=== PATIENT | male | born 1950 | race Caucasian/White ===

== ENCOUNTER 2018-09-14 14:11 | Emergency (ER) | payer MEDICARE, OTHER ==
[2018-09-14 15:16] LABS: ALT (SGPT) 9 U/L (8-55); AST (SGOT) 15 U/L (5-34); Albumin 3.5 g/dL (3.4-4.8); Alkaline Phosphatase 85 U/L (40-150); Anion Gap 13 mmol/L (10-20); BUN (Urea Nitrogen) 19 mg/dL (8.4-25.7); Bilirubin, Total 0.4 mg/dL (0.2-1.2); Calc. Creatinine Clearance 0 mL/min (70-130); Calcium 8.9 mg/dL (7.8-10.44); Carbon Dioxide 30 mmol/L (23-31); Chloride 101 mmol/L (98-107); Estimated GFR-MDRD 46; Globulin 4.2 g/dL (2.4-3.5); Glucose 104 mg/dL (80-115); Potassium 4.3 mmol/L (3.5-5.1); Protein, Total 7.7 g/dL (5.8-8.1); Sodium 140 mmol/L (136-145)
[2018-09-14 15:25] LABS: Band 1 % (5-11); Eosinophils 7 % (0-10); Hemoglobin 11.2 g/dL (14.0-18.0); Lymphocytes 13 % (21-51); MDiff Complete? YES; Mean Corpuscular HGB CONC 31.9 g/dL (32.0-36.0); Mean Corpuscular Hemoglobin 29.7 pg (27.0-31.0); Mean Corpuscular Volume 93.1 fL (78.0-98.0); Mean Platelet Volume 7.7 fL (7.4-10.4); Monocytes 4 % (0-10); Neutrophil 66 % (42-75); Platelet Count 272 thou/uL (130-400); Platelet Morphology Comment Appears Adequate; Reactive Lymphocytes 9 % (0-10); Red Blood Cell (RBC) Count 3.76 mill/uL (4.70-6.10); White Blood Cell (WBC) Count 5.1 thou/uL (4.8-10.8)
--- NOTE | 2018-09-14 15:28 | RAD ---
XR Foot Rt 3 View STANDARD HISTORY: Infection and swelling of second and third digits of the right foot. The right foot pain COMPARISON: None. FINDINGS: No definite fracture, dislocation, periosteal reaction or bony destruction is seen. If there is high clinical concern for osteomyelitis, further evaluation with MRI should be performed.
[2018-09-14] MEDS ORDERED: HYDROcodone/Acetaminophen 10/325 mg Tablet ONE (19:13)
== END 2018-09-14 22:37 ==
LOC: MADERS 14:11
DX: M86.9 Osteomyelitis, unspecified (principal); L03.115 Cellulitis of right lower limb; I10 Essential (primary) hypertension; F32.9 Major depressive disorder, single episode, unspecified
CPT/HCPCS: 80053; 83605; 85025; 85652; 87040

== ENCOUNTER 2019-09-16 12:48 | Emergency (ER) | payer MEDICARE, OTHER ==
[~2019-09-16 12:48] MED LIST: Iopamidol 370 76% 125 ML VIAL FS ONE; Sodium Chloride 0.9% 100 ML BAG ONE
--- NOTE | 2019-09-16 13:46 | CT ---
HEAD CT WITHOUT CONTRAST: HISTORY: Headache. COMPARISON: None. FINDINGS: Hemorrhage: No intraparenchymal hemorrhage or extra-axial hematoma. Brain parenchyma: Cortical beach-white matter differentiation is preserved. No mass effect or midline shift. Basilar cisterns are patent.Minimal chronic small vessel ischemic changes of the white matter. Ventricular system: Ventricles and sulci are patent and symmetric. Calvarium: Intact. There is a mottled appearance of the diploic space along the left and right fronta l calvarium. Abnormal hypodensity is noted in the expected region of both frontal sinuses. Patchy areas of lucency and sclerosis are noted. There is bone expansion. No obvious cortical destruction al gregoria the posterior aspect of the calvarium to suggest intracranial extension. Sinuses and mastoid air cells: Abnormal attenuation of the frontal sinuses as described above. Remain ing paranasal sinuses and mastoid air cells are adequately aerated. IMPRESSION: 1. No definite acute intracranial process. 2. Irregularity involving the diploic space along the left and right frontal calvarium with abnormal hypoattenuation in the expected region of both frontal sinuses. There is bone expansion. 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 No obvious intracranial extension. Patient sta krystyna that he had a previous head CT performed at the [facility] last year. An attempt will be made to obtain the prior CT to assess for interval change/stability. 3. Results of study discussed with Dr. Adair 09/16/2019 at 2:15 PM Code CR Transcribed Date/Time: 09/16/2019 1:52 PM
[2019-09-16 13:52] LABS: #Basophils 0.1 thou/uL (0.0-0.2); #Eosinphils 0.2 thou/uL (0.0-0.7); #Lymphocytes 1.5 thou/uL (1.20-3.40); #Monocytes 0.5 thou/uL (0.11-0.59); #Neutrophils 3.8 thou/uL (1.40-6.50); %Basophils 0.8 % (0.0-1.0); %Eosinophils 3.1 % (0.0-10.0); %Monocytes 8.8 % (0.0-10.0); %Neutrophils 62.3 % (42.0-75.0); Hemoglobin 13.2 g/dL (14.0-18.0); Mean Corpuscular HGB CONC 30.7 g/dL (32.0-36.0); Mean Corpuscular Hemoglobin 30.8 pg (27.0-31.0); Mean Corpuscular Volume 100.6 fL (78.0-98.0); Mean Platelet Volume 8.2 fL (7.4-10.4); Platelet Count 180 thou/uL (130-400); RBC Distribution Width 13.7 % (11.5-14.5); Red Blood Cell (RBC) Count 4.29 mill/uL (4.70-6.10); White Blood Cell (WBC) Count 6.1 thou/uL (4.8-10.8)
[2019-09-16 14:00] LABS: INR-International Normal Ratio 1.8; Prothrombin Time 20.9 SEC (12.0-14.7)
[2019-09-16 14:11] LABS: ALT (SGPT) 13 U/L (8-55); AST (SGOT) 18 U/L (5-34); Albumin 3.8 g/dL (3.4-4.8); Alkaline Phosphatase 69 U/L (40-110); Anion Gap 13 mmol/L (10-20); BUN (Urea Nitrogen) 20 mg/dL (8.4-25.7); Bilirubin, Total 0.5 mg/dL (0.2-1.2); CK (CPK) 82 U/L (30-200); Calc. Creatinine Clearance 0 mL/min (70-130); Calcium 8.9 mg/dL (7.8-10.44); Carbon Dioxide 33 mmol/L (23-31); Chloride 103 mmol/L (98-107); Estimated GFR-MDRD 55; Globulin 3.8 g/dL (2.4-3.5); Glucose 105 mg/dL (80-115); Potassium 4.5 mmol/L (3.5-5.1); Protein, Total 7.6 g/dL (5.8-8.1); Sodium 144 mmol/L (136-145)
--- NOTE | 2019-09-16 14:27 | RAD ---
PORTABLE CHEST 1 VIEW: Date: 09/16/2019 Time: 1355 hours HISTORY: Cough. FINDINGS/IMPRESSION: There are changes of median sternotomy. The heart is enlarged. The lungs are well expanded with mild prominence of the pulmonary vascularity. No lobar consolidation, pneumothoraces, or large effusions a re seen. POS: MZA
--- NOTE | 2019-09-16 15:51 | CT ---
CT PULMONARY ANGIOGRAM WITH IV CONTRAST AND 3D MIP RECONSTRUCTIONS: 09/16/19 PROVIDED CLINICAL HISTORY: Dyspnea. FINDINGS: Vascular calcification including coronary calcium is demonstrated. There is no evidence for central o r segmental pulmonary embolus. There is no evidence for thoracic aortic aneurysm or dissection. The airway appears patent and of normal caliber. There is no evidence for thoracic lymph node enlarg ement. There is a small amount of left pleural fluid. There are patchy areas of ground glass opacity involvi ng the lung parenchyma bilaterally which are predominantly but not exclusively peripheral in location . No chente consolidation. No evidence for pneumothorax. The visualized portions of the upper abdomen demonstrate gallstones without evidence for an acute abn ormality. The osseous structures demonstrate no concerning lytic or blastic lesions. IMPRESSION: 1. No evidence for central or segmental pulmonary embolus. 2. Patchy bilateral ground glass opacity involving the lung parenchyma. This can be seen in the setting of viral pneumonia, but is nonspecific and can occur with a variety of infectious and noninfe ctious processes. 3. Coronary calcium. 4. Cholelithiasis. POS: JENIFFER
[2019-09-16] MEDS ORDERED: Ventolin HFA Inhaler 60 PUFF INHALER ONE (17:41)
[2019-09-16] MEDS ORDERED: Sodium Chloride 0.9% 250 ML 250 ML ONE (17:59)
[2019-09-16] MEDS ORDERED: cefTRIAXone\\ROCEPHIN 1 GM VIAL ONE (17:59)
[2019-09-16] MEDS ORDERED: Azithromycin 500 MG VIAL ONE (17:59)
[2019-09-16] MEDS ORDERED: Sodium Chloride 0.9% 100 ML ONE (17:59)
== END 2019-09-16 19:15 | disposition short-term general hospital (02) ==
LOC: MADERS 12:48
DX: R51 Headache (principal); R05 Cough; Z20.828 Contact with and (suspected) exposure to other viral communicable diseases; R06.02 Shortness of breath; Z86.73 Personal history of transient ischemic attack (TIA), and cerebral infarction without residual deficits; K21.9 Gastro-esophageal reflux disease without esophagitis; I10 Essential (primary) hypertension; F32.9 Major depressive disorder, single episode, unspecified; I73.9 Peripheral vascular disease, unspecified
CPT/HCPCS: 70450; 71045; 71275; 80053; 82550; 83880; 84484; 85025; 85610; 87633; 87804 ×2; 93005; 94760; 96365; 96367; 99285; J0456; J0696; J3490; J7050; Q9967; U0002; 87635

== ENCOUNTER 2019-10-25 14:26 | Inpatient (IN) | payer MEDICARE, OTHER ==
[2019-10-25] MEDS: Mirtazapine 15 MG TAB PO SCH (20:54)
[2019-10-25] MEDS: Gabapentin 400 MG CAP PO SCH (20:54)
[2019-10-25] MEDS: Amlodipine 5 MG TAB PO SCH (20:54)
[2019-10-25] MEDS: Magnesium Oxide 400 MG TAB PO SCH (20:54)
[2019-10-25] MEDS: Atorvastatin Calcium 10 MG TAB PO SCH (20:55)
[2019-10-25] MEDS ORDERED: oxyCODONE/Acetaminophen 5 mg/325 mg Tablet PO PRN ×2 (22:27→22:28)
--- NOTE | 2019-10-26 03:30 | HP ---
PRIMARY CARE PHYSICIAN: Out-of-town. REASON FOR ADMISSION: Skilled rehab in [place] after recent hospitalization. HISTORY OF THE PRESENT ILLNESS AND HOSPITAL COURSE: Mr. Lam is a 69-year-old male with history of hypertension; atrial fibrillation, on long-term use of Coumadin; and history of unsteady gait. He uses a rolling walker at home. The patient reports he has history of unsteady gait and recurrent falls in the past. He has also history of chronic pain syndrome. He was preparing his breakfast at home, when he felt dizzy and landed on the floor. Denies loss of consciousness or trauma to his head. The patient was sent to the ER and on further examination, the patient's x-ray demonstrated displaced intertrochanteric fracture of the right femur. The patient was subsequently admitted and undergone ORIF. The patient has had an unremarkable postoperative course, except for anemia deemed from acute blood loss. His most recent hemoglobin prior to discharge was 9.0 with hematocrit of 28.5 as of 10/24/2019, with INR of 1.4 as of 10/23/2019. His baseline hemoglobin on 10/18/2019, per records was 11.9 with hematocrit of 37.5. The patient remained generally weak and nonambulatory prior to discharge. He was transferred to [facility] for purposes of rehab prior to going back to the home environment. When admitted, the patient was comfortable on exam. He reports that he has history of poor memory and to rely on his records for further information. 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 There was a misunderstanding of who would be the patient's attending physician due to 's decision of not involving any of his previous doctors in the facility. After further discussion of the patient with the several times on the phone, the patient decided to stay with current attending physician to take care of him while in [facility]. No other issues at this time. PAST MEDICAL HISTORY: 1. Hypertension. 2. Hyperlipidemia. 3. Chronic back pain. 4. Gastroesophageal reflux. 5. Chronic leg pain. 6. Coronary artery disease with previous open-heart surgery. 7. Atrial fibrillation, on long-term anticoagulation with Coumadin. 8. Benign prostatic hyperplasia. 9. Depression and anxiety. 10. Neuropathic pain. PAST SURGICAL HISTORY: History of coronary artery bypass surgery. SOCIAL HISTORY: The patient denied history of smoking, alcohol abuse, or illicit drug use. The patient is . He lives by himself. ALLERGIES: THE PATIENT IS ALLERGIC TO CODEINE, ASPIRIN, AND PENICILLIN. CURRENT MEDICATIONS: 1. Atorvastatin 10 mg p.o. at bedtime. 2. Amlodipine 5 mg two times a day. 3. Carvedilol 12.5 mg two times a day. 4. Cyanocobalamin 1000 mcg daily. 5. Feosol 325 mg one daily. 6. Folic acid 1 mg p.o. daily. 7. Polyethylene glycol 3350, 17 g daily as needed for constipation. 8. Warfarin sodium tablet 7.5 mg p.o. daily. 9. Gabapentin 400 mg p.o. two times a day. 10. Lamotrigine 100 mg p.o. daily. 11. Magnesium oxide 400 mg p.o. at bedtime. 12. Mirtazapine 15 mg p.o. at bedtime. 13. Omeprazole 20 mg p.o. daily. 14. Primidone 50 mg p.o. daily. 15. Tamsulosin 0.4 mg p.o. daily. 16. Venlafaxine 75 mg p.o. three capsules daily. REVIEW OF SYSTEMS: GENERAL: Denies fever or chills. Reports general weakness and fatigue. HEENT: No acute visual changes or hearing changes. RESPIRATORY: No cough, sputum production, pain with breathing, or wheezing. CARDIAC: Denies chest pain, palpitations, or syncope. Reports intermittent leg edema. GASTROINTESTINAL: reports reflux symptoms, no nausea, vomiting, abdominal pain nor diarrhea. no constipation, melena, rectal bleeding. GUT: no dysuria, frequency or urgency, gross hematuria. MUSCULOSKELETAL: per HPI. SKIN: no rashes, no pruritus. NEUROLOGY: no focal paralysis, no paresthesia. PSYCH: no insomnia, no hallucinations. PHYSICAL EXAMINATION: VITAL SIGNS: Blood pressure 130/69, temp 99.1, pulse 71, respirations 18, and O2 sats 92% on room air. Weight 294 pounds and height 6 feet. GENERAL: The patient is awake, alert, and oriented x3. Not in distress. HEENT: Normocephalic, atraumatic. PERRL. Intact EOM. Anicteric sclerae. Oral mucosa is moist. NECK: Supple. No LAD. Flat JVD. CHEST: Normal excursion. Clear to auscultation bilaterally. CARDIAC: Rate controlled. Normal S1 and S2. ABDOMEN: Obese and soft. Normoactive bowel sounds. Nondistended, nontender. No rebound or guarding. Negative CVA tenderness bilaterally. EXTREMITIES: Trace bipedal edema up to anterior tibia bilaterally. Negative Homans signs. SKIN: Three postoperative sites in the right lateral femur were intact. Kathy are in place. Dry. No drainage. No arpita-wound erythema nor surrounding edema. Some bruises noted on the scrotum and hyperpigmentation of the anterior mid to lower tibia. bilaterally. PSYCH: Appears calm. Appropriate demeanor and affect.Cooperative. NEUROLOGIC: Nonfocal. Spontaneous speech. Gait unsteady. ASSESSMENT AND PLAN: 1. Physical deconditioning. 2. Right femur displaced intertrochanteric fracture, status post open reduction and internal fixation. 3. Chronic atrial fibrillation, on long-term use of warfarin with subtherapeutic INR. 4. Hypertension. 5. Hyperlipidemia. 6. Anemia from acute blood loss. 7. Chronic gastroesophageal reflux disease, 8. Chronic low back pain, depression, 9. Anxiety. 10. Benign prostatic hyperplasia. 11. Unsteady gait. The patient is admitted to [facility] for skilled rehab. Refer to PT and OT. Continue all current medications as modified per list. Routine INR daily and CBC every weekly. INR goal of 2 to 3. Titrate warfarin to goal appropriately.INR goal: 2-3. Further recommendations depending on hospital course. ESTIMATED LENGTH OF STAY: 3 weeks. DISPOSITION: Home once appropriate. The patient reports that he lives by himself. He is open to the fact that after skilled rehab, he may stay in step-down SNF if he could not take care of himself at that time and no one would be able to take care of him at home. CODE STATUS: The patient reports FULL CODE. Job ID: [id number] MTDD
[2019-10-26 05:56] LABS: Platelet Count 265 thou/uL (130-400)
[2019-10-26 05:58] LABS: INR-International Normal Ratio 1.4; Prothrombin Time 17.3 sec (12.0-14.7)
[2019-10-26 06:27] LABS: Hemoglobin 9.2 g/dL (14.0-18.0); Mean Corpuscular Hemoglobin 31.8 pg (27.0-31.0); Mean Platelet Volume 8.9 fL (7.4-10.4); Red Blood Cell (RBC) Count 2.89 mill/uL (4.70-6.10); White Blood Cell (WBC) Count 6.9 thou/uL (4.8-10.8)
[2019-10-26] MEDS: Ferrous Sulfate 325 MG TAB PO SCH (07:54)
[2019-10-26] MEDS: Folic Acid 1 MG TAB PO SCH (07:54)
[2019-10-26] MEDS: Tamsulosin HCl 0.4 MG CAP PO SCH (07:54)
[2019-10-26] MEDS: Gabapentin 400 MG CAP PO SCH ×2 (07:54→20:21)
[2019-10-26] MEDS: Cyanocobalamin (Vitamin B-12) 1,000 MCG TAB PO SCH (07:54)
[2019-10-26] MEDS: Acetaminophen 325 MG TAB PO PRN ×3 (07:55→19:58)
[2019-10-26] MEDS: oxyCODONE 5 MG TAB PO PRN ×2 (07:56→20:07)
[2019-10-26] MEDS: lamoTRIgine 25 MG TAB PO SCH (07:59)
[2019-10-26] MEDS: Primidone 50 MG TAB PO SCH (08:00)
[2019-10-26] MEDS ORDERED: Warfarin Sodium 2.5 MG TAB PO SCH (09:00)
[2019-10-26] MEDS: Carvedilol 12.5 MG TAB PO SCH ×2 (09:38→17:04)
[2019-10-26] MEDS: Amlodipine 5 MG TAB PO SCH ×2 (09:38→20:10)
[2019-10-26] MEDS: Venlafaxine HCl 37.5 MG TAB PO SCH (09:39)
[2019-10-26] MEDS ORDERED: oxyCODONE 5 MG TAB PO SCH (13:30)
[2019-10-26] MEDS ORDERED: Acetaminophen 325 MG TAB PO SCH (13:30)
[2019-10-26] MEDS ORDERED: Warfarin Sodium 5 MG TAB PO SCH (17:00)
[2019-10-26] MEDS: Mirtazapine 15 MG TAB PO SCH (20:05)
[2019-10-26] MEDS: Atorvastatin Calcium 10 MG TAB PO SCH (20:06)
[2019-10-26] MEDS: Magnesium Oxide 400 MG TAB PO SCH (20:11)
[2019-10-27] MEDS: oxyCODONE 5 MG TAB PO PRN ×2 (06:04→19:33)
[2019-10-27] MEDS: Acetaminophen 325 MG TAB PO PRN ×2 (06:06→19:33)
[2019-10-27 07:24] LABS: INR-International Normal Ratio 1.4; Prothrombin Time 17.2 sec (12.0-14.7)
[2019-10-27] MEDS: Gabapentin 400 MG CAP PO SCH ×2 (08:07→20:20)
[2019-10-27] MEDS: Ferrous Sulfate 325 MG TAB PO SCH (08:08)
[2019-10-27] MEDS: Primidone 50 MG TAB PO SCH (08:08)
[2019-10-27] MEDS: Venlafaxine HCl 37.5 MG TAB PO SCH (08:08)
[2019-10-27] MEDS: Folic Acid 1 MG TAB PO SCH (08:08)
[2019-10-27] MEDS: Amlodipine 5 MG TAB PO SCH ×2 (08:08→20:21)
[2019-10-27] MEDS: Tamsulosin HCl 0.4 MG CAP PO SCH (08:08)
[2019-10-27] MEDS: lamoTRIgine 25 MG TAB PO SCH (08:08)
[2019-10-27] MEDS: Carvedilol 12.5 MG TAB PO SCH ×2 (08:08→17:01)
[2019-10-27] MEDS: Cyanocobalamin (Vitamin B-12) 1,000 MCG TAB PO SCH (08:08)
[2019-10-27] MEDS ORDERED: Warfarin Sodium 1 MG TAB PO SCH (17:00)
[2019-10-27] MEDS ORDERED: Warfarin Sodium 2.5 MG TAB PO SCH (17:00)
[2019-10-27] MEDS ORDERED: Warfarin Sodium 5 MG TAB PO SCH ×2 (17:00→17:15)
[2019-10-27] MEDS: Magnesium Oxide 400 MG TAB PO SCH (20:22)
[2019-10-27] MEDS: Mirtazapine 15 MG TAB PO SCH (20:22)
[2019-10-27] MEDS: Atorvastatin Calcium 10 MG TAB PO SCH (20:22)
[2019-10-28 05:37] LABS: INR-International Normal Ratio 1.7; Prothrombin Time 19.7 sec (12.0-14.7)
[2019-10-28] MEDS: Acetaminophen 325 MG TAB PO PRN (06:14)
[2019-10-28] MEDS: oxyCODONE 5 MG TAB PO PRN ×3 (06:14→20:30)
[2019-10-28] MEDS: Amlodipine 5 MG TAB PO SCH ×2 (08:41→20:29)
[2019-10-28] MEDS: Cyanocobalamin (Vitamin B-12) 1,000 MCG TAB PO SCH (08:41)
[2019-10-28] MEDS: Carvedilol 12.5 MG TAB PO SCH ×2 (08:41→17:20)
[2019-10-28] MEDS: Ferrous Sulfate 325 MG TAB PO SCH (08:41)
[2019-10-28] MEDS: Venlafaxine HCl 37.5 MG TAB PO SCH (08:42)
[2019-10-28] MEDS: Tamsulosin HCl 0.4 MG CAP PO SCH (08:42)
[2019-10-28] MEDS: Gabapentin 400 MG CAP PO SCH ×2 (08:42→20:29)
[2019-10-28] MEDS: Folic Acid 1 MG TAB PO SCH (08:42)
[2019-10-28] MEDS: Primidone 50 MG TAB PO SCH (08:42)
[2019-10-28] MEDS: lamoTRIgine 25 MG TAB PO SCH (08:42)
[2019-10-28] MEDS ORDERED: Artificial Tear Sol 15 ML BOT EA EYE PRN (16:48)
[2019-10-28] MEDS ORDERED: Warfarin Sodium 5 MG TAB PO SCH ×2 (17:00)
[2019-10-28] MEDS: Warfarin Sodium 2.5 MG TAB PO SCH (17:20)
[2019-10-28] MEDS: Magnesium Oxide 400 MG TAB PO SCH (20:29)
[2019-10-28] MEDS: Atorvastatin Calcium 10 MG TAB PO SCH (20:29)
[2019-10-28] MEDS: Mirtazapine 15 MG TAB PO SCH (20:30)
[2019-10-29 07:14] LABS: INR-International Normal Ratio 1.8; Prothrombin Time 20.4 sec (12.0-14.7)
[2019-10-29] MEDS: Ferrous Sulfate 325 MG TAB PO SCH (09:05)
[2019-10-29] MEDS: Carvedilol 12.5 MG TAB PO SCH ×2 (09:05→17:07)
[2019-10-29] MEDS: Amlodipine 5 MG TAB PO SCH ×2 (09:05→21:18)
[2019-10-29] MEDS: Tamsulosin HCl 0.4 MG CAP PO SCH (09:06)
[2019-10-29] MEDS: Folic Acid 1 MG TAB PO SCH (09:06)
[2019-10-29] MEDS: lamoTRIgine 25 MG TAB PO SCH (09:06)
[2019-10-29] MEDS: Venlafaxine HCl 37.5 MG TAB PO SCH (09:06)
[2019-10-29] MEDS: Gabapentin 400 MG CAP PO SCH ×2 (09:06→21:18)
[2019-10-29] MEDS: Primidone 50 MG TAB PO SCH (09:06)
[2019-10-29] MEDS: Cyanocobalamin (Vitamin B-12) 1,000 MCG TAB PO SCH (09:06)
[2019-10-29] MEDS: oxyCODONE 5 MG TAB PO PRN (09:16)
[2019-10-29] MEDS: Warfarin Sodium 2.5 MG TAB PO SCH (17:08)
[2019-10-29] MEDS: Mirtazapine 15 MG TAB PO SCH (21:18)
[2019-10-29] MEDS: Magnesium Oxide 400 MG TAB PO SCH (21:18)
[2019-10-29] MEDS: Atorvastatin Calcium 10 MG TAB PO SCH (21:18)
[2019-10-30 05:55] LABS: INR-International Normal Ratio 1.7; Prothrombin Time 19.5 sec (12.0-14.7)
[2019-10-30] MEDS: Amlodipine 5 MG TAB PO SCH ×2 (09:15→20:49)
[2019-10-30] MEDS: Ferrous Sulfate 325 MG TAB PO SCH (09:15)
[2019-10-30] MEDS: Cyanocobalamin (Vitamin B-12) 1,000 MCG TAB PO SCH (09:15)
[2019-10-30] MEDS: Carvedilol 12.5 MG TAB PO SCH ×2 (09:15→17:15)
[2019-10-30] MEDS: Primidone 50 MG TAB PO SCH (09:16)
[2019-10-30] MEDS: Gabapentin 400 MG CAP PO SCH ×2 (09:16→20:48)
[2019-10-30] MEDS: Folic Acid 1 MG TAB PO SCH (09:16)
[2019-10-30] MEDS: lamoTRIgine 25 MG TAB PO SCH (09:16)
[2019-10-30] MEDS: Acetaminophen 325 MG TAB PO PRN ×2 (09:16→20:14)
[2019-10-30] MEDS: oxyCODONE 5 MG TAB PO PRN ×2 (09:17→20:12)
[2019-10-30] MEDS: Venlafaxine HCl 37.5 MG TAB PO SCH (09:17)
[2019-10-30] MEDS: Tamsulosin HCl 0.4 MG CAP PO SCH (09:17)
[2019-10-30] MEDS: Polyethylene Glycol 3350 17 GM Packet PO PRN (09:23)
[2019-10-30] MEDS: Warfarin Sodium 2.5 MG TAB PO SCH (17:15)
[2019-10-30] MEDS: Mirtazapine 15 MG TAB PO SCH (20:48)
[2019-10-30] MEDS: Magnesium Oxide 400 MG TAB PO SCH (20:48)
[2019-10-30] MEDS: Atorvastatin Calcium 10 MG TAB PO SCH (20:48)
[2019-10-31 05:41] LABS: INR-International Normal Ratio 1.8; Prothrombin Time 21.2 sec (12.0-14.7)
[2019-10-31] MEDS: oxyCODONE 5 MG TAB PO PRN ×3 (05:42→20:31)
[2019-10-31] MEDS: Acetaminophen 325 MG TAB PO PRN ×2 (05:42→11:34)
[2019-10-31] MEDS: Ferrous Sulfate 325 MG TAB PO SCH (08:58)
[2019-10-31] MEDS: Carvedilol 12.5 MG TAB PO SCH ×2 (08:58→17:27)
[2019-10-31] MEDS: Primidone 50 MG TAB PO SCH (08:58)
[2019-10-31] MEDS: Amlodipine 5 MG TAB PO SCH ×2 (08:58→20:32)
[2019-10-31] MEDS: Venlafaxine HCl 37.5 MG TAB PO SCH (08:59)
[2019-10-31] MEDS: Tamsulosin HCl 0.4 MG CAP PO SCH (08:59)
[2019-10-31] MEDS: lamoTRIgine 25 MG TAB PO SCH (08:59)
[2019-10-31] MEDS: Gabapentin 400 MG CAP PO SCH ×2 (08:59→20:32)
[2019-10-31] MEDS: Cyanocobalamin (Vitamin B-12) 1,000 MCG TAB PO SCH (08:59)
[2019-10-31] MEDS: Folic Acid 1 MG TAB PO SCH (08:59)
[2019-10-31] MEDS ORDERED: Nitroglycerin 0.4 MG TAB (25 Tab Bottle) ONE (11:52)
[2019-10-31 12:09] LABS: #Basophils 0.1 thou/uL (0.0-0.2); #Eosinphils 0.4 thou/uL (0.0-0.7); #Lymphocytes 0.8 thou/uL (1.20-3.40); #Monocytes 0.5 thou/uL (0.11-0.59); #Neutrophils 4.6 thou/uL (1.40-6.50); %Eosinophils 5.9 % (0.0-10.0); %Lymphocytes 12.6 % (21.0-51.0); %Monocytes 8.5 % (0.0-10.0); %Neutrophils 72.1 % (42.0-75.0); Hemoglobin 9.6 g/dL (14.0-18.0); Mean Corpuscular HGB CONC 30.2 g/dL (32.0-36.0); Mean Corpuscular Hemoglobin 30.9 pg (27.0-31.0); Mean Corpuscular Volume 102.5 fL (78.0-98.0); Mean Platelet Volume 8.4 fL (7.4-10.4); Platelet Count 311 thou/uL (130-400); RBC Distribution Width 14.2 % (11.5-14.5); White Blood Cell (WBC) Count 6.4 thou/uL (4.8-10.8)
[2019-10-31 12:10] LABS: INR-International Normal Ratio 1.7; PTT 43.4 sec (22.9-36.1); Prothrombin Time 20.2 sec (12.0-14.7)
--- NOTE | 2019-10-31 12:10 | RAD ---
Chest one view HISTORY: Chest pain. COMPARISON: 10/18/2019. FINDINGS: Cardiac silhouette is magnified and enlarged. Pulmonary vasculature is more engorged with w idespread reticulonodular interstitial prominence. Mediastinum is midline with postoperative changes. No lobar consolidation or pneumothorax are apparent. IMPRESSION : Cardiomegaly with findings of chronic CHF
[2019-10-31 12:22] LABS: ALT (SGPT) 12 U/L (8-55); AST (SGOT) 14 U/L (5-34); Albumin 3.3 g/dL (3.4-4.8); Alkaline Phosphatase 109 U/L (40-110); Anion Gap 13 mmol/L (10-20); BUN (Urea Nitrogen) 33 mg/dL (8.4-25.7); Bilirubin, Total 0.7 mg/dL (0.2-1.2); Calc. Creatinine Clearance 92 mL/min (70-130); Calcium 9.5 mg/dL (7.8-10.44); Carbon Dioxide 32 mmol/L (23-31); Chloride 100 mmol/L (98-107); Estimated GFR-MDRD 50; Glucose 128 mg/dL (80-115); Potassium 4.7 mmol/L (3.5-5.1); Protein, Total 7.3 g/dL (5.8-8.1); Sodium 140 mmol/L (136-145)
[2019-10-31 12:24] LABS: CKMB 1.2 ng/mL (0-6.6); Troponin I Less than 0.010 ng/mL (< 0.028)
[2019-10-31] MEDS ORDERED: Furosemide 20 MG/2 ML VIAL SLOW IVP SCH (15:45)
[2019-10-31] MEDS: Warfarin Sodium 2.5 MG TAB PO SCH (17:27)
[2019-10-31] MEDS: Atorvastatin Calcium 10 MG TAB PO SCH (20:32)
[2019-10-31] MEDS: Magnesium Oxide 400 MG TAB PO SCH (20:32)
[2019-10-31] MEDS: Mirtazapine 15 MG TAB PO SCH (20:32)
[2019-10-31] MEDS ORDERED: Nitroglycerin 4.9 GM Bottle SL PRN (20:40)
[2019-10-31] MEDS ORDERED: Enoxaparin Sodium 30 MG/0.3 ML SYRINGE SC SCH (21:00)
[2019-10-31] MEDS ORDERED: Enoxaparin Sodium 100 MG/ML SYRINGE SC SCH (21:00)
[2019-11-01 05:48] LABS: Prothrombin Time 22.9 sec (12.0-14.7)
[2019-11-01 05:58] LABS: Hemoglobin 8.2 g/dL (14.0-18.0); Platelet Count 269 thou/uL (130-400)
[2019-11-01] MEDS ORDERED: Enoxaparin Sodium 30 MG/0.3 ML SYRINGE SC SCH (09:00)
[2019-11-01] MEDS ORDERED: Enoxaparin Sodium 100 MG/ML SYRINGE SC SCH (09:00)
[2019-11-01] MEDS: Gabapentin 400 MG CAP PO SCH ×2 (09:10→20:01)
[2019-11-01] MEDS: Tamsulosin HCl 0.4 MG CAP PO SCH (09:10)
[2019-11-01] MEDS: Folic Acid 1 MG TAB PO SCH (09:10)
[2019-11-01] MEDS: Furosemide 20 MG TAB PO SCH (09:10)
[2019-11-01] MEDS: Ferrous Sulfate 325 MG TAB PO SCH (09:10)
[2019-11-01] MEDS: Primidone 50 MG TAB PO SCH (09:10)
[2019-11-01] MEDS: Cyanocobalamin (Vitamin B-12) 1,000 MCG TAB PO SCH (09:10)
[2019-11-01] MEDS: Venlafaxine HCl 37.5 MG TAB PO SCH (09:10)
[2019-11-01] MEDS: lamoTRIgine 25 MG TAB PO SCH (09:11)
[2019-11-01] MEDS: Carvedilol 12.5 MG TAB PO SCH ×2 (09:11→17:03)
[2019-11-01] MEDS: Amlodipine 5 MG TAB PO SCH ×2 (09:11→20:02)
[2019-11-01] MEDS ORDERED: Iopamidol 370 76% 125 ML VIAL FS ONE (11:31)
--- NOTE | 2019-11-01 13:05 | CT ---
CT ANGIOGRAM THORAX WITH CONTRAST: (CTA pulmonary angiogram) DATE: 11/01/2019 HISTORY: 69-year-old male with chest pain and dyspnea TECHNIQUE: IV injection of iodinated contrast. Scan acquisition timing attempted to coincide with iodinated contrast bolus reaching maximal density in pulmonary arteries. 3-D MIP reconstructions. FINDINGS: Multiple tiny calcified gallstones within distended gallbladder. No evidence of mural thickening or p ericholecystic edema. Images are degraded by patient breathing motion artifact, especially at the lung bases. No pulmonary thromboembolism is identified in the pulmonic trunk, left and right main pul monary arteries, or the bilateral upper lobe proximal and mid level branches. No thoracic aortic aneurysm or dissection. There is tortuosity and ectasia of thoracic aorta and mild dilation of the le ft and right main pulmonary arteries. There is nonspecific mild to moderate spinal and bilateral hilar lymphadenopathy. Mild 4 chamber cardiac dilation. Tiny left pleural effusion. Left lower lobe m oderate size region of consolidation. Fluid in the major fissures. Mild narrowing of bilateral mainstem bronchi and the luke. Trachea patent. Diffuse patchy nonspecific groundglass densities thr oughout all lung zones. IMPRESSION: 1. Probable congestive heart failure: Groundglass densities probably represent pulmonary interstitial edema. Viral pneumonitis is slightly less likely but not excluded. 2. Left lower lobe region of consolidation. 3. No central pulmonary thromboembolism. 4. Cholelithiasis
[2019-11-01] MEDS: Acetaminophen 325 MG TAB PO PRN ×2 (13:12→19:33)
[2019-11-01] MEDS: oxyCODONE 5 MG TAB PO PRN ×2 (13:12→19:33)
[2019-11-01] MEDS ORDERED: Sodium Chloride 0.9% 100 ML BAG ONE (14:04)
[2019-11-01] MEDS: Warfarin Sodium 2.5 MG TAB PO SCH (17:03)
[2019-11-01] MEDS: Atorvastatin Calcium 10 MG TAB PO SCH (20:02)
[2019-11-01] MEDS: Mirtazapine 15 MG TAB PO SCH (20:02)
[2019-11-01] MEDS: Magnesium Oxide 400 MG TAB PO SCH (20:02)
[2019-11-02 05:35] LABS: INR-International Normal Ratio 1.8; Prothrombin Time 20.7 sec (12.0-14.7)
[2019-11-02] MEDS: Amlodipine 5 MG TAB PO SCH ×2 (07:57→20:52)
[2019-11-02] MEDS: Ferrous Sulfate 325 MG TAB PO SCH (07:57)
[2019-11-02] MEDS: Carvedilol 12.5 MG TAB PO SCH ×2 (07:57→16:59)
[2019-11-02] MEDS: Folic Acid 1 MG TAB PO SCH (07:57)
[2019-11-02] MEDS: Tamsulosin HCl 0.4 MG CAP PO SCH (07:57)
[2019-11-02] MEDS: Cyanocobalamin (Vitamin B-12) 1,000 MCG TAB PO SCH (07:57)
[2019-11-02] MEDS: Furosemide 20 MG TAB PO SCH ×2 (07:57→13:19)
[2019-11-02] MEDS: Venlafaxine HCl 37.5 MG TAB PO SCH (07:57)
[2019-11-02] MEDS: Gabapentin 400 MG CAP PO SCH ×2 (07:58→20:48)
[2019-11-02] MEDS: lamoTRIgine 25 MG TAB PO SCH (07:58)
[2019-11-02] MEDS: Primidone 50 MG TAB PO SCH (07:58)
[2019-11-02] MEDS ORDERED: Potassium Chloride 20 MEQ TAB PO SCH (13:00)
[2019-11-02] MEDS: Warfarin Sodium 5 MG TAB PO SCH (16:59)
[2019-11-02] MEDS: Magnesium Oxide 400 MG TAB PO SCH (20:47)
[2019-11-02] MEDS: Atorvastatin Calcium 10 MG TAB PO SCH (20:47)
[2019-11-02] MEDS: Mirtazapine 15 MG TAB PO SCH (20:48)
[2019-11-03 05:57] LABS: INR-International Normal Ratio 2.1; Prothrombin Time 23.5 sec (12.0-14.7)
[2019-11-03] MEDS: Gabapentin 400 MG CAP PO SCH ×2 (08:20→21:09)
[2019-11-03] MEDS: lamoTRIgine 25 MG TAB PO SCH (08:20)
[2019-11-03] MEDS: Cyanocobalamin (Vitamin B-12) 1,000 MCG TAB PO SCH (08:20)
[2019-11-03] MEDS: Amlodipine 5 MG TAB PO SCH ×2 (08:21→21:09)
[2019-11-03] MEDS: Ferrous Sulfate 325 MG TAB PO SCH (08:21)
[2019-11-03] MEDS: Venlafaxine HCl 37.5 MG TAB PO SCH (08:21)
[2019-11-03] MEDS: Tamsulosin HCl 0.4 MG CAP PO SCH (08:21)
[2019-11-03] MEDS: Carvedilol 12.5 MG TAB PO SCH ×2 (08:22→17:08)
[2019-11-03] MEDS: Folic Acid 1 MG TAB PO SCH (08:22)
[2019-11-03] MEDS: Furosemide 20 MG TAB PO SCH ×2 (08:22→14:03)
[2019-11-03] MEDS: Potassium Chloride 20 MEQ TAB PO SCH (08:22)
[2019-11-03] MEDS: Primidone 50 MG TAB PO SCH (08:22)
[2019-11-03] MEDS: Polyethylene Glycol 3350 17 GM Packet PO PRN (14:03)
[2019-11-03] MEDS: Warfarin Sodium 5 MG TAB PO SCH (17:08)
[2019-11-03] MEDS ORDERED: Gabapentin 100 MG CAP PO SCH (21:00)
[2019-11-03] MEDS: Magnesium Oxide 400 MG TAB PO SCH (21:10)
[2019-11-03] MEDS: Atorvastatin Calcium 10 MG TAB PO SCH (21:10)
[2019-11-03] MEDS: Mirtazapine 15 MG TAB PO SCH (21:10)
[2019-11-03] MEDS: Acetaminophen 325 MG TAB PO PRN (21:16)
[2019-11-04 05:47] LABS: Hemoglobin 8.2 g/dL (14.0-18.0); Platelet Count 281 thou/uL (130-400)
[2019-11-04 05:49] LABS: INR-International Normal Ratio 1.9; Prothrombin Time 21.8 sec (12.0-14.7)
[2019-11-04] MEDS ORDERED: Furosemide 20 MG TAB PO SCH (07:15)
[2019-11-04] MEDS: Carvedilol 12.5 MG TAB PO SCH ×2 (07:37→16:57)
[2019-11-04] MEDS: Potassium Chloride 20 MEQ TAB PO SCH (07:37)
[2019-11-04] MEDS: Ferrous Sulfate 325 MG TAB PO SCH (07:38)
[2019-11-04] MEDS: oxyCODONE 5 MG TAB PO PRN (07:38)
[2019-11-04] MEDS: lamoTRIgine 25 MG TAB PO SCH (08:24)
[2019-11-04] MEDS: Gabapentin 400 MG CAP PO SCH ×2 (08:24→21:55)
[2019-11-04] MEDS: Primidone 50 MG TAB PO SCH (08:25)
[2019-11-04] MEDS: Cyanocobalamin (Vitamin B-12) 1,000 MCG TAB PO SCH (08:25)
[2019-11-04] MEDS: Venlafaxine HCl 37.5 MG TAB PO SCH (08:26)
[2019-11-04] MEDS: Tamsulosin HCl 0.4 MG CAP PO SCH (08:26)
[2019-11-04] MEDS: Amlodipine 5 MG TAB PO SCH ×2 (08:26→21:52)
[2019-11-04] MEDS: Polyethylene Glycol 3350 17 GM Packet PO SCH (08:27)
[2019-11-04] MEDS: Folic Acid 1 MG TAB PO SCH (08:27)
[2019-11-04] MEDS ORDERED: Nitroglycerin 0.4 MG TAB (25 Tab Bottle) SL PRN (16:03)
[2019-11-04] MEDS: Warfarin Sodium 5 MG TAB PO SCH (16:57)
[2019-11-04] MEDS: Acetaminophen 325 MG TAB PO PRN (17:06)
[2019-11-04] MEDS: Magnesium Oxide 400 MG TAB PO SCH (21:55)
[2019-11-04] MEDS: Mirtazapine 15 MG TAB PO SCH (21:55)
[2019-11-04] MEDS: Atorvastatin Calcium 10 MG TAB PO SCH (21:55)
[2019-11-05 05:57] LABS: INR-International Normal Ratio 2.5; Prothrombin Time 26.9 sec (12.0-14.7)
[2019-11-05 06:03] LABS: Anion Gap 13 mmol/L (10-20); BUN (Urea Nitrogen) 22 mg/dL (8.4-25.7); Calc. Creatinine Clearance 110 mL/min (70-130); Calcium 8.8 mg/dL (7.8-10.44); Carbon Dioxide 34 mmol/L (23-31); Chloride 100 mmol/L (98-107); Estimated GFR-MDRD 60; Glucose 93 mg/dL (80-115); Potassium 4.3 mmol/L (3.5-5.1); Sodium 143 mmol/L (136-145)
[2019-11-05] MEDS: Potassium Chloride 20 MEQ TAB PO SCH (08:31)
[2019-11-05] MEDS: Amlodipine 5 MG TAB PO SCH ×2 (08:31→21:51)
[2019-11-05] MEDS: Ferrous Sulfate 325 MG TAB PO SCH (08:31)
[2019-11-05] MEDS: Carvedilol 12.5 MG TAB PO SCH ×2 (08:31→17:02)
[2019-11-05] MEDS: lamoTRIgine 25 MG TAB PO SCH (08:31)
[2019-11-05] MEDS: Primidone 50 MG TAB PO SCH (08:31)
[2019-11-05] MEDS: Folic Acid 1 MG TAB PO SCH (08:31)
[2019-11-05] MEDS: Gabapentin 400 MG CAP PO SCH ×2 (08:31→21:51)
[2019-11-05] MEDS: Venlafaxine HCl 37.5 MG TAB PO SCH (08:31)
[2019-11-05] MEDS: Tamsulosin HCl 0.4 MG CAP PO SCH (08:31)
[2019-11-05] MEDS: Cyanocobalamin (Vitamin B-12) 1,000 MCG TAB PO SCH (08:31)
[2019-11-05] MEDS: Polyethylene Glycol 3350 17 GM Packet PO SCH (08:32)
[2019-11-05] MEDS: Warfarin Sodium 5 MG TAB PO SCH (17:03)
[2019-11-05] MEDS: Magnesium Oxide 400 MG TAB PO SCH (21:51)
[2019-11-05] MEDS: Mirtazapine 15 MG TAB PO SCH (21:51)
[2019-11-05] MEDS: Acetaminophen 325 MG TAB PO PRN (21:51)
[2019-11-05] MEDS: Atorvastatin Calcium 10 MG TAB PO SCH (21:51)
[2019-11-06 06:19] LABS: INR-International Normal Ratio 2.5; Prothrombin Time 26.8 sec (12.0-14.7)
[2019-11-06] MEDS: Venlafaxine HCl 37.5 MG TAB PO SCH (08:19)
[2019-11-06] MEDS: Polyethylene Glycol 3350 17 GM Packet PO SCH (08:19)
[2019-11-06] MEDS: Furosemide 20 MG TAB PO SCH (08:19)
[2019-11-06] MEDS: Tamsulosin HCl 0.4 MG CAP PO SCH (08:19)
[2019-11-06] MEDS: Folic Acid 1 MG TAB PO SCH (08:20)
[2019-11-06] MEDS: Carvedilol 12.5 MG TAB PO SCH ×2 (08:20→16:57)
[2019-11-06] MEDS: Cyanocobalamin (Vitamin B-12) 1,000 MCG TAB PO SCH (08:20)
[2019-11-06] MEDS: Ferrous Sulfate 325 MG TAB PO SCH (08:20)
[2019-11-06] MEDS: Potassium Chloride 20 MEQ TAB PO SCH (08:20)
[2019-11-06] MEDS: Primidone 50 MG TAB PO SCH (08:20)
[2019-11-06] MEDS: Amlodipine 5 MG TAB PO SCH ×2 (08:20→19:58)
[2019-11-06] MEDS: lamoTRIgine 25 MG TAB PO SCH (08:20)
[2019-11-06] MEDS: Gabapentin 400 MG CAP PO SCH ×2 (08:20→19:57)
[2019-11-06] MEDS: Acetaminophen 325 MG TAB PO PRN ×2 (14:09→19:56)
[2019-11-06] MEDS: Warfarin Sodium 5 MG TAB PO SCH (16:57)
[2019-11-06] MEDS: Mirtazapine 15 MG TAB PO SCH (19:57)
[2019-11-06] MEDS: Atorvastatin Calcium 10 MG TAB PO SCH (19:57)
[2019-11-06] MEDS: Magnesium Oxide 400 MG TAB PO SCH (19:57)
[2019-11-07 05:52] LABS: INR-International Normal Ratio 2.8; Prothrombin Time 29.2 sec (12.0-14.7)
[2019-11-07] MEDS: oxyCODONE 5 MG TAB PO PRN (08:14)
[2019-11-07] MEDS: Venlafaxine HCl 37.5 MG TAB PO SCH (08:15)
[2019-11-07] MEDS: Primidone 50 MG TAB PO SCH (08:15)
[2019-11-07] MEDS: Potassium Chloride 20 MEQ TAB PO SCH (08:15)
[2019-11-07] MEDS: lamoTRIgine 25 MG TAB PO SCH (08:15)
[2019-11-07] MEDS: Ferrous Sulfate 325 MG TAB PO SCH (08:15)
[2019-11-07] MEDS: Furosemide 20 MG TAB PO SCH (08:15)
[2019-11-07] MEDS: Tamsulosin HCl 0.4 MG CAP PO SCH (08:15)
[2019-11-07] MEDS: Amlodipine 5 MG TAB PO SCH ×2 (08:16→21:34)
[2019-11-07] MEDS: Cyanocobalamin (Vitamin B-12) 1,000 MCG TAB PO SCH (08:16)
[2019-11-07] MEDS: Carvedilol 12.5 MG TAB PO SCH ×2 (08:16→16:56)
[2019-11-07] MEDS: Folic Acid 1 MG TAB PO SCH (08:16)
[2019-11-07] MEDS: Gabapentin 400 MG CAP PO SCH ×2 (08:16→21:38)
[2019-11-07] MEDS: Polyethylene Glycol 3350 17 GM Packet PO SCH (08:17)
[2019-11-07] MEDS ORDERED: WARFARIN IVPB PRN (13:27)
[2019-11-07] MEDS ORDERED: Warfarin Sodium 2.5 MG TAB PO SCH (17:00)
[2019-11-07] MEDS: Atorvastatin Calcium 10 MG TAB PO SCH (21:34)
[2019-11-07] MEDS: Magnesium Oxide 400 MG TAB PO SCH (21:35)
[2019-11-07] MEDS: Mirtazapine 15 MG TAB PO SCH (21:35)
[2019-11-07] MEDS: Acetaminophen 325 MG TAB PO PRN (21:36)
[2019-11-08 05:49] LABS: INR-International Normal Ratio 2.8
[2019-11-08] MEDS: Venlafaxine XR 37.5 MG CAP PO SCH (07:41)
[2019-11-08] MEDS: Tamsulosin HCl 0.4 MG CAP PO SCH (07:41)
[2019-11-08] MEDS: Potassium Chloride 20 MEQ TAB PO SCH (07:41)
[2019-11-08] MEDS: Polyethylene Glycol 3350 17 GM Packet PO SCH (07:41)
[2019-11-08] MEDS: Ferrous Sulfate 325 MG TAB PO SCH (07:41)
[2019-11-08] MEDS: Primidone 50 MG TAB PO SCH (07:41)
[2019-11-08] MEDS: Gabapentin 400 MG CAP PO SCH ×2 (07:41→21:14)
[2019-11-08] MEDS: lamoTRIgine 25 MG TAB PO SCH (07:42)
[2019-11-08] MEDS: Carvedilol 12.5 MG TAB PO SCH ×2 (07:42→16:55)
[2019-11-08] MEDS: Folic Acid 1 MG TAB PO SCH (07:42)
[2019-11-08] MEDS: Amlodipine 5 MG TAB PO SCH ×2 (07:42→21:13)
[2019-11-08] MEDS: Cyanocobalamin (Vitamin B-12) 1,000 MCG TAB PO SCH (07:42)
[2019-11-08] MEDS: Furosemide 20 MG TAB PO SCH (07:42)
[2019-11-08] MEDS: Acetaminophen 325 MG TAB PO PRN ×2 (07:43→16:55)
[2019-11-08] MEDS ORDERED: Venlafaxine HCl XR 150 MG CAP PO SCH (09:00)
[2019-11-08] MEDS ORDERED: Venlafaxine XR 37.5 MG CAP PO SCH (09:00)
[2019-11-08] MEDS: oxyCODONE 5 MG TAB PO PRN (16:55)
[2019-11-08] MEDS ORDERED: Warfarin Sodium 2.5 MG TAB PO SCH (17:00)
[2019-11-08] MEDS: Mirtazapine 15 MG TAB PO SCH (21:14)
[2019-11-08] MEDS: Magnesium Oxide 400 MG TAB PO SCH (21:14)
[2019-11-08] MEDS: Atorvastatin Calcium 10 MG TAB PO SCH (21:14)
[2019-11-09 06:00] LABS: INR-International Normal Ratio 2.9; Prothrombin Time 29.8 sec (12.0-14.7)
[2019-11-09] MEDS: Polyethylene Glycol 3350 17 GM Packet PO SCH (08:02)
[2019-11-09] MEDS: Tamsulosin HCl 0.4 MG CAP PO SCH (08:03)
[2019-11-09] MEDS: Furosemide 20 MG TAB PO SCH (08:03)
[2019-11-09] MEDS: Cyanocobalamin (Vitamin B-12) 1,000 MCG TAB PO SCH (08:03)
[2019-11-09] MEDS: Carvedilol 12.5 MG TAB PO SCH ×2 (08:03→17:13)
[2019-11-09] MEDS: Venlafaxine XR 37.5 MG CAP PO SCH (08:03)
[2019-11-09] MEDS: Gabapentin 400 MG CAP PO SCH ×2 (08:03→20:59)
[2019-11-09] MEDS: Folic Acid 1 MG TAB PO SCH (08:03)
[2019-11-09] MEDS: Potassium Chloride 20 MEQ TAB PO SCH (08:03)
[2019-11-09] MEDS: Ferrous Sulfate 325 MG TAB PO SCH (08:03)
[2019-11-09] MEDS: lamoTRIgine 25 MG TAB PO SCH (08:04)
[2019-11-09] MEDS: Primidone 50 MG TAB PO SCH (08:04)
[2019-11-09] MEDS: Amlodipine 5 MG TAB PO SCH ×2 (08:04→20:59)
[2019-11-09] MEDS ORDERED: Warfarin Sodium 5 MG TAB PO SCH (17:00)
[2019-11-09] MEDS: Warfarin Sodium 2.5 MG TAB PO SCH (17:13)
[2019-11-09] MEDS: Acetaminophen 325 MG TAB PO PRN (20:59)
[2019-11-09] MEDS: Atorvastatin Calcium 10 MG TAB PO SCH (21:00)
[2019-11-09] MEDS: Mirtazapine 15 MG TAB PO SCH (21:00)
[2019-11-09] MEDS: Magnesium Oxide 400 MG TAB PO SCH (21:00)
[2019-11-10 05:50] LABS: INR-International Normal Ratio 2.6; Prothrombin Time 27.7 sec (12.0-14.7)
[2019-11-10] MEDS: Polyethylene Glycol 3350 17 GM Packet PO SCH (08:19)
[2019-11-10] MEDS: Furosemide 20 MG TAB PO SCH (08:20)
[2019-11-10] MEDS: Ferrous Sulfate 325 MG TAB PO SCH (08:21)
[2019-11-10] MEDS: Cyanocobalamin (Vitamin B-12) 1,000 MCG TAB PO SCH (08:21)
[2019-11-10] MEDS: Gabapentin 400 MG CAP PO SCH ×2 (08:21→21:52)
[2019-11-10] MEDS: Amlodipine 5 MG TAB PO SCH ×2 (08:21→21:51)
[2019-11-10] MEDS: Carvedilol 12.5 MG TAB PO SCH ×2 (08:21→17:22)
[2019-11-10] MEDS: Potassium Chloride 20 MEQ TAB PO SCH (08:21)
[2019-11-10] MEDS: Folic Acid 1 MG TAB PO SCH (08:21)
[2019-11-10] MEDS: Primidone 50 MG TAB PO SCH (08:22)
[2019-11-10] MEDS: Venlafaxine XR 37.5 MG CAP PO SCH (08:22)
[2019-11-10] MEDS: lamoTRIgine 25 MG TAB PO SCH (08:22)
[2019-11-10] MEDS: Tamsulosin HCl 0.4 MG CAP PO SCH (08:23)
[2019-11-10] MEDS: oxyCODONE 5 MG TAB PO PRN (09:57)
[2019-11-10] MEDS: Warfarin Sodium 2.5 MG TAB PO SCH (17:23)
[2019-11-10] MEDS: Magnesium Oxide 400 MG TAB PO SCH (21:51)
[2019-11-10] MEDS: Mirtazapine 15 MG TAB PO SCH (21:52)
[2019-11-10] MEDS: Atorvastatin Calcium 10 MG TAB PO SCH (21:52)
[2019-11-11 05:50] LABS: INR-International Normal Ratio 2.5; Prothrombin Time 26.4 sec (12.0-14.7)
[2019-11-11] MEDS: Polyethylene Glycol 3350 17 GM Packet PO SCH (08:51)
[2019-11-11] MEDS: Tamsulosin HCl 0.4 MG CAP PO SCH (08:52)
[2019-11-11] MEDS: Amlodipine 5 MG TAB PO SCH ×2 (08:52→20:56)
[2019-11-11] MEDS: Cyanocobalamin (Vitamin B-12) 1,000 MCG TAB PO SCH (08:53)
[2019-11-11] MEDS: Gabapentin 400 MG CAP PO SCH ×2 (08:53→20:56)
[2019-11-11] MEDS: Venlafaxine XR 37.5 MG CAP PO SCH (08:53)
[2019-11-11] MEDS: Acetaminophen 325 MG TAB PO PRN (08:53)
[2019-11-11] MEDS: Ferrous Sulfate 325 MG TAB PO SCH (08:53)
[2019-11-11] MEDS: Furosemide 20 MG TAB PO SCH (08:53)
[2019-11-11] MEDS: Primidone 50 MG TAB PO SCH (08:53)
[2019-11-11] MEDS: Folic Acid 1 MG TAB PO SCH (08:54)
[2019-11-11] MEDS: lamoTRIgine 25 MG TAB PO SCH (08:54)
[2019-11-11] MEDS: Carvedilol 12.5 MG TAB PO SCH ×2 (08:54→17:18)
[2019-11-11] MEDS: Potassium Chloride 20 MEQ TAB PO SCH (08:54)
[2019-11-11] MEDS: Warfarin Sodium 2.5 MG TAB PO SCH (17:19)
[2019-11-11] MEDS: Mirtazapine 15 MG TAB PO SCH (20:56)
[2019-11-11] MEDS: Magnesium Oxide 400 MG TAB PO SCH (20:56)
[2019-11-11] MEDS: Atorvastatin Calcium 10 MG TAB PO SCH (20:56)
[2019-11-12 05:47] LABS: INR-International Normal Ratio 2.5; Prothrombin Time 27.2 sec (12.0-14.7)
[2019-11-12] MEDS: Carvedilol 12.5 MG TAB PO SCH ×2 (08:07→17:18)
[2019-11-12] MEDS: Potassium Chloride 20 MEQ TAB PO SCH (08:07)
[2019-11-12] MEDS: Ferrous Sulfate 325 MG TAB PO SCH (08:07)
[2019-11-12] MEDS: Gabapentin 400 MG CAP PO SCH ×2 (09:54→20:25)
[2019-11-12] MEDS: lamoTRIgine 25 MG TAB PO SCH (09:54)
[2019-11-12] MEDS: Tamsulosin HCl 0.4 MG CAP PO SCH (09:55)
[2019-11-12] MEDS: Amlodipine 5 MG TAB PO SCH ×2 (09:55→20:24)
[2019-11-12] MEDS: Primidone 50 MG TAB PO SCH (09:56)
[2019-11-12] MEDS: Furosemide 20 MG TAB PO SCH (09:56)
[2019-11-12] MEDS: Venlafaxine XR 37.5 MG CAP PO SCH (09:57)
[2019-11-12] MEDS: Cyanocobalamin (Vitamin B-12) 1,000 MCG TAB PO SCH (09:57)
[2019-11-12] MEDS: Polyethylene Glycol 3350 17 GM Packet PO SCH (09:59)
[2019-11-12] MEDS: Folic Acid 1 MG TAB PO SCH (09:59)
[2019-11-12] MEDS: Warfarin Sodium 2.5 MG TAB PO SCH (17:17)
[2019-11-12] MEDS: Atorvastatin Calcium 10 MG TAB PO SCH (20:24)
[2019-11-12] MEDS: Magnesium Oxide 400 MG TAB PO SCH (20:24)
[2019-11-12] MEDS: Mirtazapine 15 MG TAB PO SCH (20:25)
[2019-11-13 05:52] LABS: INR-International Normal Ratio 2.4; Prothrombin Time 25.6 sec (12.0-14.7)
[2019-11-13] MEDS: Polyethylene Glycol 3350 17 GM Packet PO SCH (10:00)
[2019-11-13] MEDS: Potassium Chloride 20 MEQ TAB PO SCH (10:00)
[2019-11-13] MEDS: Primidone 50 MG TAB PO SCH (10:01)
[2019-11-13] MEDS: Gabapentin 400 MG CAP PO SCH ×2 (10:01→21:14)
[2019-11-13] MEDS: lamoTRIgine 25 MG TAB PO SCH (10:01)
[2019-11-13] MEDS: Acetaminophen 325 MG TAB PO PRN (10:01)
[2019-11-13] MEDS: Tamsulosin HCl 0.4 MG CAP PO SCH (10:02)
[2019-11-13] MEDS: Amlodipine 5 MG TAB PO SCH ×2 (10:02→21:13)
[2019-11-13] MEDS: Furosemide 20 MG TAB PO SCH (10:02)
[2019-11-13] MEDS: Carvedilol 12.5 MG TAB PO SCH ×2 (10:02→17:16)
[2019-11-13] MEDS: Ferrous Sulfate 325 MG TAB PO SCH (10:03)
[2019-11-13] MEDS: Venlafaxine XR 37.5 MG CAP PO SCH (10:03)
[2019-11-13] MEDS: Folic Acid 1 MG TAB PO SCH (10:03)
[2019-11-13] MEDS: Cyanocobalamin (Vitamin B-12) 1,000 MCG TAB PO SCH (10:03)
[2019-11-13] MEDS ORDERED: Sodium Chloride Irrig Solution 250 ML BOT ONE (10:50)
[2019-11-13] MEDS: Warfarin Sodium 2.5 MG TAB PO SCH (17:16)
[2019-11-13] MEDS: Magnesium Oxide 400 MG TAB PO SCH (21:14)
[2019-11-13] MEDS: Atorvastatin Calcium 10 MG TAB PO SCH (21:14)
[2019-11-13] MEDS: Mirtazapine 15 MG TAB PO SCH (21:14)
[2019-11-14 05:43] LABS: INR-International Normal Ratio 2.2; Prothrombin Time 24.1 sec (12.0-14.7)
[2019-11-14] MEDS: Primidone 50 MG TAB PO SCH (07:51)
[2019-11-14] MEDS: Furosemide 20 MG TAB PO SCH (07:51)
[2019-11-14] MEDS: Amlodipine 5 MG TAB PO SCH ×2 (07:51→22:01)
[2019-11-14] MEDS: Ferrous Sulfate 325 MG TAB PO SCH (07:52)
[2019-11-14] MEDS: Folic Acid 1 MG TAB PO SCH (07:52)
[2019-11-14] MEDS: Gabapentin 400 MG CAP PO SCH ×2 (07:52→22:01)
[2019-11-14] MEDS: Cyanocobalamin (Vitamin B-12) 1,000 MCG TAB PO SCH (07:52)
[2019-11-14] MEDS: Venlafaxine XR 37.5 MG CAP PO SCH (07:52)
[2019-11-14] MEDS: Tamsulosin HCl 0.4 MG CAP PO SCH (07:52)
[2019-11-14] MEDS: Potassium Chloride 20 MEQ TAB PO SCH (07:52)
[2019-11-14] MEDS: Carvedilol 12.5 MG TAB PO SCH ×2 (07:52→16:48)
[2019-11-14] MEDS: lamoTRIgine 25 MG TAB PO SCH (07:52)
[2019-11-14] MEDS: Polyethylene Glycol 3350 17 GM Packet PO SCH (07:53)
[2019-11-14] MEDS: Acetaminophen 325 MG TAB PO PRN (10:14)
[2019-11-14] MEDS: Warfarin Sodium 2.5 MG TAB PO SCH (16:49)
[2019-11-14] MEDS ORDERED: Warfarin Sodium 2.5 MG TAB PO SCH (17:00)
[2019-11-14] MEDS ORDERED: Warfarin Sodium 5 MG TAB PO SCH (17:00)
[2019-11-14] MEDS: Atorvastatin Calcium 10 MG TAB PO SCH (22:01)
[2019-11-14] MEDS: Mirtazapine 15 MG TAB PO SCH (22:01)
[2019-11-14] MEDS: Magnesium Oxide 400 MG TAB PO SCH (22:02)
[2019-11-15] MEDS: Furosemide 20 MG TAB PO SCH (08:45)
[2019-11-15] MEDS: Potassium Chloride 20 MEQ TAB PO SCH (08:45)
[2019-11-15] MEDS: Primidone 50 MG TAB PO SCH (08:45)
[2019-11-15] MEDS: lamoTRIgine 25 MG TAB PO SCH (08:45)
[2019-11-15] MEDS: Venlafaxine XR 37.5 MG CAP PO SCH (08:45)
[2019-11-15] MEDS: Folic Acid 1 MG TAB PO SCH (08:45)
[2019-11-15] MEDS: Ferrous Sulfate 325 MG TAB PO SCH (08:45)
[2019-11-15] MEDS: Gabapentin 400 MG CAP PO SCH ×2 (08:45→20:33)
[2019-11-15] MEDS: Carvedilol 12.5 MG TAB PO SCH ×2 (08:46→16:49)
[2019-11-15] MEDS: Tamsulosin HCl 0.4 MG CAP PO SCH (08:46)
[2019-11-15] MEDS: Polyethylene Glycol 3350 17 GM Packet PO SCH (08:46)
[2019-11-15] MEDS: Amlodipine 5 MG TAB PO SCH ×2 (08:46→20:33)
[2019-11-15] MEDS: Cyanocobalamin (Vitamin B-12) 1,000 MCG TAB PO SCH (08:46)
[2019-11-15 09:11] LABS: Prothrombin Time 22.2 sec (12.0-14.7)
[2019-11-15] MEDS: oxyCODONE 5 MG TAB PO PRN (16:49)
[2019-11-15] MEDS: Warfarin Sodium 7.5 MG TAB PO SCH (16:49)
[2019-11-15] MEDS: Acetaminophen 325 MG TAB PO PRN (16:49)
[2019-11-15] MEDS: Atorvastatin Calcium 10 MG TAB PO SCH (20:33)
[2019-11-15] MEDS: Magnesium Oxide 400 MG TAB PO SCH (20:33)
[2019-11-15] MEDS: Mirtazapine 15 MG TAB PO SCH (20:33)
[2019-11-16 05:51] LABS: INR-International Normal Ratio 2.1; Prothrombin Time 23.8 sec (12.0-14.7)
[2019-11-16] MEDS: Venlafaxine XR 37.5 MG CAP PO SCH (07:49)
[2019-11-16] MEDS: Primidone 50 MG TAB PO SCH (07:49)
[2019-11-16] MEDS: Tamsulosin HCl 0.4 MG CAP PO SCH (07:49)
[2019-11-16] MEDS: Ferrous Sulfate 325 MG TAB PO SCH (07:49)
[2019-11-16] MEDS: Potassium Chloride 20 MEQ TAB PO SCH (07:49)
[2019-11-16] MEDS: Carvedilol 12.5 MG TAB PO SCH ×2 (07:50→17:04)
[2019-11-16] MEDS: Amlodipine 5 MG TAB PO SCH ×2 (07:50→20:28)
[2019-11-16] MEDS: Polyethylene Glycol 3350 17 GM Packet PO SCH (07:50)
[2019-11-16] MEDS: lamoTRIgine 25 MG TAB PO SCH (07:50)
[2019-11-16] MEDS: Furosemide 20 MG TAB PO SCH (07:50)
[2019-11-16] MEDS: Folic Acid 1 MG TAB PO SCH (07:50)
[2019-11-16] MEDS: Cyanocobalamin (Vitamin B-12) 1,000 MCG TAB PO SCH (07:50)
[2019-11-16] MEDS: Gabapentin 400 MG CAP PO SCH ×2 (07:50→20:29)
[2019-11-16] MEDS: Warfarin Sodium 5 MG TAB PO SCH (17:04)
[2019-11-16] MEDS: Atorvastatin Calcium 10 MG TAB PO SCH (20:28)
[2019-11-16] MEDS: Mirtazapine 15 MG TAB PO SCH (20:29)
[2019-11-16] MEDS: Magnesium Oxide 400 MG TAB PO SCH (20:29)
[2019-11-17 06:01] LABS: INR-International Normal Ratio 2.3; Prothrombin Time 25.4 sec (12.0-14.7)
[2019-11-17] MEDS: Ferrous Sulfate 325 MG TAB PO SCH (09:00)
[2019-11-17] MEDS: Potassium Chloride 20 MEQ TAB PO SCH (09:00)
[2019-11-17] MEDS: Primidone 50 MG TAB PO SCH (09:05)
[2019-11-17] MEDS: Carvedilol 12.5 MG TAB PO SCH ×2 (09:05→17:47)
[2019-11-17] MEDS: Venlafaxine XR 37.5 MG CAP PO SCH (09:06)
[2019-11-17] MEDS: Polyethylene Glycol 3350 17 GM Packet PO SCH (09:06)
[2019-11-17] MEDS: Furosemide 20 MG TAB PO SCH (09:07)
[2019-11-17] MEDS: Gabapentin 400 MG CAP PO SCH ×2 (09:07→20:45)
[2019-11-17] MEDS: Cyanocobalamin (Vitamin B-12) 1,000 MCG TAB PO SCH (09:08)
[2019-11-17] MEDS: Amlodipine 5 MG TAB PO SCH ×2 (09:08→20:45)
[2019-11-17] MEDS: Folic Acid 1 MG TAB PO SCH (09:08)
[2019-11-17] MEDS: Tamsulosin HCl 0.4 MG CAP PO SCH (09:08)
[2019-11-17] MEDS: lamoTRIgine 25 MG TAB PO SCH (09:09)
[2019-11-17] MEDS: Warfarin Sodium 7.5 MG TAB PO SCH (17:48)
[2019-11-17] MEDS: Mirtazapine 15 MG TAB PO SCH (20:44)
[2019-11-17] MEDS: Atorvastatin Calcium 10 MG TAB PO SCH (20:44)
[2019-11-17] MEDS: oxyCODONE 5 MG TAB PO PRN (20:45)
[2019-11-17] MEDS: Magnesium Oxide 400 MG TAB PO SCH (20:45)
[2019-11-17] MEDS: Acetaminophen 325 MG TAB PO PRN (20:47)
[2019-11-18] MEDS: Acetaminophen 325 MG TAB PO PRN (04:40)
[2019-11-18] MEDS: oxyCODONE 5 MG TAB PO PRN (04:41)
[2019-11-18 05:51] LABS: INR-International Normal Ratio 2.6; Prothrombin Time 27.7 sec (12.0-14.7)
[2019-11-18] MEDS: Amlodipine 5 MG TAB PO SCH (09:11)
[2019-11-18] MEDS: Carvedilol 12.5 MG TAB PO SCH ×2 (09:11→17:26)
[2019-11-18] MEDS: Ferrous Sulfate 325 MG TAB PO SCH (09:11)
[2019-11-18] MEDS: Potassium Chloride 20 MEQ TAB PO SCH (09:11)
[2019-11-18] MEDS: Folic Acid 1 MG TAB PO SCH (09:12)
[2019-11-18] MEDS: lamoTRIgine 25 MG TAB PO SCH (09:12)
[2019-11-18] MEDS: Cyanocobalamin (Vitamin B-12) 1,000 MCG TAB PO SCH (09:12)
[2019-11-18] MEDS: Venlafaxine XR 37.5 MG CAP PO SCH (09:12)
[2019-11-18] MEDS: Furosemide 20 MG TAB PO SCH (09:12)
[2019-11-18] MEDS: Primidone 50 MG TAB PO SCH (09:12)
[2019-11-18] MEDS: Gabapentin 400 MG CAP PO SCH ×2 (09:12→20:57)
[2019-11-18] MEDS: Tamsulosin HCl 0.4 MG CAP PO SCH (09:12)
[2019-11-18] MEDS: Polyethylene Glycol 3350 17 GM Packet PO SCH (09:13)
[2019-11-18] MEDS: Warfarin Sodium 5 MG TAB PO SCH (17:33)
[2019-11-18] MEDS: Atorvastatin Calcium 10 MG TAB PO SCH (20:57)
[2019-11-18] MEDS: Magnesium Oxide 400 MG TAB PO SCH (20:57)
[2019-11-18] MEDS: Mirtazapine 15 MG TAB PO SCH (20:57)
[2019-11-19 06:07] LABS: Hemoglobin 10.1 g/dL (14.0-18.0)
[2019-11-19 06:09] LABS: INR-International Normal Ratio 2.7; Prothrombin Time 28.3 sec (12.0-14.7)
[2019-11-19 06:16] LABS: Anion Gap 12 mmol/L (10-20); BUN (Urea Nitrogen) 29 mg/dL (8.4-25.7); Calc. Creatinine Clearance 80 mL/min (70-130); Carbon Dioxide 36 mmol/L (23-31); Chloride 100 mmol/L (98-107); Estimated GFR-MDRD 46; Glucose 96 mg/dL (80-115); Potassium 4.2 mmol/L (3.5-5.1); Sodium 144 mmol/L (136-145)
[2019-11-19] MEDS: Cyanocobalamin (Vitamin B-12) 1,000 MCG TAB PO SCH (08:30)
[2019-11-19] MEDS: Ferrous Sulfate 325 MG TAB PO SCH (08:30)
[2019-11-19] MEDS: Potassium Chloride 20 MEQ TAB PO SCH (08:30)
[2019-11-19] MEDS: Primidone 50 MG TAB PO SCH (08:30)
[2019-11-19] MEDS: Amlodipine 5 MG TAB PO SCH (08:32)
[2019-11-19] MEDS: Folic Acid 1 MG TAB PO SCH (08:32)
[2019-11-19] MEDS: Furosemide 20 MG TAB PO SCH (08:33)
[2019-11-19] MEDS: lamoTRIgine 25 MG TAB PO SCH (08:33)
[2019-11-19] MEDS: Carvedilol 12.5 MG TAB PO SCH ×2 (08:33→17:04)
[2019-11-19] MEDS: Tamsulosin HCl 0.4 MG CAP PO SCH (08:33)
[2019-11-19] MEDS: Polyethylene Glycol 3350 17 GM Packet PO SCH (08:41)
[2019-11-19] MEDS: Venlafaxine XR 37.5 MG CAP PO SCH (08:43)
[2019-11-19] MEDS: Gabapentin 400 MG CAP PO SCH ×2 (08:49→21:26)
[2019-11-19] MEDS: Warfarin Sodium 7.5 MG TAB PO SCH (17:05)
[2019-11-19] MEDS: Magnesium Oxide 400 MG TAB PO SCH (21:25)
[2019-11-19] MEDS: Mirtazapine 15 MG TAB PO SCH (21:26)
[2019-11-19] MEDS: Acetaminophen 325 MG TAB PO PRN (21:26)
[2019-11-19] MEDS: Atorvastatin Calcium 10 MG TAB PO SCH (21:26)
[2019-11-20 06:10] LABS: Prothrombin Time 30.8 sec (12.0-14.7)
[2019-11-20 06:18] LABS: Anion Gap 14 mmol/L (10-20); BUN (Urea Nitrogen) 27 mg/dL (8.4-25.7); Calc. Creatinine Clearance 87 mL/min (70-130); Calcium 8.9 mg/dL (7.8-10.44); Carbon Dioxide 34 mmol/L (23-31); Chloride 101 mmol/L (98-107); Estimated GFR-MDRD 51; Glucose 94 mg/dL (80-115); Potassium 3.9 mmol/L (3.5-5.1); Sodium 145 mmol/L (136-145)
[2019-11-20] MEDS: Cyanocobalamin (Vitamin B-12) 1,000 MCG TAB PO SCH (08:40)
[2019-11-20] MEDS: Tamsulosin HCl 0.4 MG CAP PO SCH (08:40)
[2019-11-20] MEDS: Venlafaxine XR 37.5 MG CAP PO SCH (08:40)
[2019-11-20] MEDS: Carvedilol 12.5 MG TAB PO SCH ×2 (08:40→17:21)
[2019-11-20] MEDS: Potassium Chloride 20 MEQ TAB PO SCH (08:40)
[2019-11-20] MEDS: Folic Acid 1 MG TAB PO SCH (08:41)
[2019-11-20] MEDS: Furosemide 20 MG TAB PO SCH (08:41)
[2019-11-20] MEDS: Ferrous Sulfate 325 MG TAB PO SCH (08:41)
[2019-11-20] MEDS: Gabapentin 400 MG CAP PO SCH ×2 (08:41→20:31)
[2019-11-20] MEDS: Amlodipine 5 MG TAB PO SCH (08:42)
[2019-11-20] MEDS: lamoTRIgine 25 MG TAB PO SCH (08:42)
[2019-11-20] MEDS: Primidone 50 MG TAB PO SCH (08:42)
[2019-11-20] MEDS: Polyethylene Glycol 3350 17 GM Packet PO SCH (08:49)
[2019-11-20] MEDS: Warfarin Sodium 7.5 MG TAB PO SCH (16:49)
[2019-11-20] MEDS: Atorvastatin Calcium 10 MG TAB PO SCH (20:31)
[2019-11-20] MEDS: Magnesium Oxide 400 MG TAB PO SCH (20:31)
[2019-11-20] MEDS: Mirtazapine 15 MG TAB PO SCH (20:32)
[2019-11-21] MEDS: Folic Acid 1 MG TAB PO SCH (08:58)
[2019-11-21] MEDS: Potassium Chloride 20 MEQ TAB PO SCH (08:58)
[2019-11-21] MEDS: Amlodipine 5 MG TAB PO SCH (08:58)
[2019-11-21] MEDS: Carvedilol 12.5 MG TAB PO SCH ×2 (08:58→17:39)
[2019-11-21] MEDS: Cyanocobalamin (Vitamin B-12) 1,000 MCG TAB PO SCH (08:58)
[2019-11-21] MEDS: Ferrous Sulfate 325 MG TAB PO SCH (08:58)
[2019-11-21] MEDS: Gabapentin 400 MG CAP PO SCH ×2 (08:58→20:34)
[2019-11-21] MEDS: Furosemide 20 MG TAB PO SCH (08:58)
[2019-11-21] MEDS: oxyCODONE 5 MG TAB PO PRN (08:59)
[2019-11-21] MEDS: lamoTRIgine 25 MG TAB PO SCH (09:00)
[2019-11-21] MEDS: Primidone 50 MG TAB PO SCH (09:00)
[2019-11-21] MEDS: Polyethylene Glycol 3350 17 GM Packet PO SCH (09:01)
[2019-11-21] MEDS: Tamsulosin HCl 0.4 MG CAP PO SCH (09:02)
[2019-11-21] MEDS: Venlafaxine XR 37.5 MG CAP PO SCH (09:02)
[2019-11-21] MEDS: Warfarin Sodium 7.5 MG TAB PO SCH (17:39)
[2019-11-21] MEDS: Magnesium Oxide 400 MG TAB PO SCH (20:34)
[2019-11-21] MEDS: Mirtazapine 15 MG TAB PO SCH (20:34)
[2019-11-21] MEDS: Atorvastatin Calcium 10 MG TAB PO SCH (20:34)
[2019-11-22] MEDS: Venlafaxine XR 37.5 MG CAP PO SCH (08:13)
[2019-11-22] MEDS: Potassium Chloride 20 MEQ TAB PO SCH (08:13)
[2019-11-22] MEDS: Polyethylene Glycol 3350 17 GM Packet PO SCH (08:13)
[2019-11-22] MEDS: Ferrous Sulfate 325 MG TAB PO SCH (08:13)
[2019-11-22] MEDS: Tamsulosin HCl 0.4 MG CAP PO SCH (08:13)
[2019-11-22] MEDS: Folic Acid 1 MG TAB PO SCH (08:14)
[2019-11-22] MEDS: Furosemide 20 MG TAB PO SCH (08:14)
[2019-11-22] MEDS: Amlodipine 5 MG TAB PO SCH (08:14)
[2019-11-22] MEDS: lamoTRIgine 25 MG TAB PO SCH (08:15)
[2019-11-22] MEDS: Carvedilol 12.5 MG TAB PO SCH ×2 (08:15→17:11)
[2019-11-22] MEDS: Cyanocobalamin (Vitamin B-12) 1,000 MCG TAB PO SCH (08:15)
[2019-11-22] MEDS: Primidone 50 MG TAB PO SCH (08:15)
[2019-11-22] MEDS: Gabapentin 400 MG CAP PO SCH ×2 (08:15→22:00)
[2019-11-22] MEDS: Warfarin Sodium 7.5 MG TAB PO SCH (17:11)
[2019-11-22] MEDS: Atorvastatin Calcium 10 MG TAB PO SCH (22:00)
[2019-11-22] MEDS: Magnesium Oxide 400 MG TAB PO SCH (22:00)
[2019-11-22] MEDS: Mirtazapine 15 MG TAB PO SCH (22:00)
[2019-11-22] MEDS: Acetaminophen 325 MG TAB PO PRN (22:38)
[2019-11-23] MEDS: Carvedilol 12.5 MG TAB PO SCH ×2 (08:34→17:03)
[2019-11-23] MEDS: Ferrous Sulfate 325 MG TAB PO SCH (08:34)
[2019-11-23] MEDS: Venlafaxine XR 37.5 MG CAP PO SCH (08:35)
[2019-11-23] MEDS: Furosemide 20 MG TAB PO SCH (08:35)
[2019-11-23] MEDS: Amlodipine 5 MG TAB PO SCH (08:35)
[2019-11-23] MEDS: Potassium Chloride 20 MEQ TAB PO SCH (08:35)
[2019-11-23] MEDS: Folic Acid 1 MG TAB PO SCH (08:35)
[2019-11-23] MEDS: Cyanocobalamin (Vitamin B-12) 1,000 MCG TAB PO SCH (08:35)
[2019-11-23] MEDS: Tamsulosin HCl 0.4 MG CAP PO SCH (08:36)
[2019-11-23] MEDS: Gabapentin 400 MG CAP PO SCH ×2 (08:36→20:48)
[2019-11-23] MEDS: lamoTRIgine 25 MG TAB PO SCH (08:36)
[2019-11-23] MEDS: Primidone 50 MG TAB PO SCH (08:36)
[2019-11-23] MEDS: Polyethylene Glycol 3350 17 GM Packet PO SCH (08:38)
[2019-11-23] MEDS: Warfarin Sodium 7.5 MG TAB PO SCH (17:04)
[2019-11-23] MEDS: Magnesium Oxide 400 MG TAB PO SCH (20:48)
[2019-11-23] MEDS: Atorvastatin Calcium 10 MG TAB PO SCH (20:51)
[2019-11-23] MEDS: Mirtazapine 15 MG TAB PO SCH (20:52)
[2019-11-24 05:51] LABS: INR-International Normal Ratio 3.1; Prothrombin Time 31.5 sec (12.0-14.7)
[2019-11-24] MEDS: Carvedilol 12.5 MG TAB PO SCH ×2 (08:47→17:53)
[2019-11-24] MEDS: Ferrous Sulfate 325 MG TAB PO SCH (08:47)
[2019-11-24] MEDS: Potassium Chloride 20 MEQ TAB PO SCH (08:48)
[2019-11-24] MEDS: Folic Acid 1 MG TAB PO SCH (08:48)
[2019-11-24] MEDS: Gabapentin 400 MG CAP PO SCH ×2 (08:48→21:10)
[2019-11-24] MEDS: Cyanocobalamin (Vitamin B-12) 1,000 MCG TAB PO SCH (08:48)
[2019-11-24] MEDS: Amlodipine 5 MG TAB PO SCH (08:48)
[2019-11-24] MEDS: Primidone 50 MG TAB PO SCH (08:48)
[2019-11-24] MEDS: Furosemide 20 MG TAB PO SCH (08:48)
[2019-11-24] MEDS: Tamsulosin HCl 0.4 MG CAP PO SCH (08:48)
[2019-11-24] MEDS: Venlafaxine XR 37.5 MG CAP PO SCH (08:49)
[2019-11-24] MEDS: Polyethylene Glycol 3350 17 GM Packet PO SCH (08:49)
[2019-11-24] MEDS: lamoTRIgine 25 MG TAB PO SCH (08:49)
[2019-11-24] MEDS: Warfarin Sodium 5 MG TAB PO SCH (17:53)
[2019-11-24] MEDS: Warfarin Sodium 2 MG TAB PO SCH (17:53)
[2019-11-24] MEDS: Mirtazapine 15 MG TAB PO SCH (21:10)
[2019-11-24] MEDS: Magnesium Oxide 400 MG TAB PO SCH (21:10)
[2019-11-24] MEDS: Atorvastatin Calcium 10 MG TAB PO SCH (21:10)
[2019-11-25 05:58] LABS: Prothrombin Time 30.8 sec (12.0-14.7)
[2019-11-25] MEDS: Ferrous Sulfate 325 MG TAB PO SCH (09:21)
[2019-11-25] MEDS: Folic Acid 1 MG TAB PO SCH (09:21)
[2019-11-25] MEDS: Carvedilol 12.5 MG TAB PO SCH ×2 (09:22→17:46)
[2019-11-25] MEDS: Amlodipine 5 MG TAB PO SCH (09:22)
[2019-11-25] MEDS: Venlafaxine XR 37.5 MG CAP PO SCH (09:22)
[2019-11-25] MEDS: Potassium Chloride 20 MEQ TAB PO SCH (09:22)
[2019-11-25] MEDS: Cyanocobalamin (Vitamin B-12) 1,000 MCG TAB PO SCH (09:22)
[2019-11-25] MEDS: Primidone 50 MG TAB PO SCH (09:23)
[2019-11-25] MEDS: Tamsulosin HCl 0.4 MG CAP PO SCH (09:23)
[2019-11-25] MEDS: lamoTRIgine 25 MG TAB PO SCH (09:23)
[2019-11-25] MEDS: Furosemide 20 MG TAB PO SCH (09:24)
[2019-11-25] MEDS: Gabapentin 400 MG CAP PO SCH ×2 (09:24→20:24)
[2019-11-25] MEDS: Polyethylene Glycol 3350 17 GM Packet PO SCH (09:28)
[2019-11-25] MEDS: Warfarin Sodium 2 MG TAB PO SCH (17:49)
[2019-11-25] MEDS: Warfarin Sodium 5 MG TAB PO SCH (17:49)
[2019-11-25] MEDS: Mirtazapine 15 MG TAB PO SCH (20:24)
[2019-11-25] MEDS: Magnesium Oxide 400 MG TAB PO SCH (20:24)
[2019-11-25] MEDS: Atorvastatin Calcium 10 MG TAB PO SCH (20:24)
[2019-11-26 05:59] LABS: INR-International Normal Ratio 3.1; Prothrombin Time 31.5 sec (12.0-14.7)
[2019-11-26] MEDS: Gabapentin 400 MG CAP PO SCH ×2 (08:23→20:15)
[2019-11-26] MEDS: Venlafaxine XR 37.5 MG CAP PO SCH (08:23)
[2019-11-26] MEDS: Amlodipine 5 MG TAB PO SCH (08:23)
[2019-11-26] MEDS: Tamsulosin HCl 0.4 MG CAP PO SCH (08:23)
[2019-11-26] MEDS: Primidone 50 MG TAB PO SCH (08:23)
[2019-11-26] MEDS: Carvedilol 12.5 MG TAB PO SCH ×2 (08:23→17:08)
[2019-11-26] MEDS: Ferrous Sulfate 325 MG TAB PO SCH (08:24)
[2019-11-26] MEDS: Furosemide 20 MG TAB PO SCH (08:24)
[2019-11-26] MEDS: Cyanocobalamin (Vitamin B-12) 1,000 MCG TAB PO SCH (08:24)
[2019-11-26] MEDS: lamoTRIgine 25 MG TAB PO SCH (08:24)
[2019-11-26] MEDS: Potassium Chloride 20 MEQ TAB PO SCH (08:24)
[2019-11-26] MEDS: Folic Acid 1 MG TAB PO SCH (08:25)
[2019-11-26] MEDS: Polyethylene Glycol 3350 17 GM Packet PO SCH (08:25)
[2019-11-26] MEDS: Warfarin Sodium 5 MG TAB PO SCH (17:07)
[2019-11-26] MEDS: Warfarin Sodium 2 MG TAB PO SCH (17:07)
[2019-11-26] MEDS: Mirtazapine 15 MG TAB PO SCH (20:15)
[2019-11-26] MEDS: Atorvastatin Calcium 10 MG TAB PO SCH (20:16)
[2019-11-26] MEDS: Magnesium Oxide 400 MG TAB PO SCH (20:16)
[2019-11-27 05:59] LABS: INR-International Normal Ratio 3.3; Prothrombin Time 33.5 sec (12.0-14.7)
[2019-11-27] MEDS: lamoTRIgine 25 MG TAB PO SCH (08:56)
[2019-11-27] MEDS: Venlafaxine XR 37.5 MG CAP PO SCH (08:57)
[2019-11-27] MEDS: Ferrous Sulfate 325 MG TAB PO SCH (08:57)
[2019-11-27] MEDS: Furosemide 20 MG TAB PO SCH (08:57)
[2019-11-27] MEDS: Carvedilol 12.5 MG TAB PO SCH ×2 (08:58→17:17)
[2019-11-27] MEDS: Amlodipine 5 MG TAB PO SCH (08:58)
[2019-11-27] MEDS: Potassium Chloride 20 MEQ TAB PO SCH (08:58)
[2019-11-27] MEDS: Folic Acid 1 MG TAB PO SCH (08:58)
[2019-11-27] MEDS: Tamsulosin HCl 0.4 MG CAP PO SCH (08:58)
[2019-11-27] MEDS: Cyanocobalamin (Vitamin B-12) 1,000 MCG TAB PO SCH (08:58)
[2019-11-27] MEDS: Polyethylene Glycol 3350 17 GM Packet PO SCH (08:59)
[2019-11-27] MEDS: Primidone 50 MG TAB PO SCH (08:59)
[2019-11-27] MEDS: Gabapentin 400 MG CAP PO SCH ×2 (08:59→20:23)
[2019-11-27] MEDS ORDERED: Warfarin Sodium 5 MG TAB PO SCH (17:00)
[2019-11-27] MEDS: Mirtazapine 15 MG TAB PO SCH (20:22)
[2019-11-27] MEDS: Atorvastatin Calcium 10 MG TAB PO SCH (20:23)
[2019-11-27] MEDS: Magnesium Oxide 400 MG TAB PO SCH (20:23)
[2019-11-28] MEDS: oxyCODONE 5 MG TAB PO PRN (05:36)
[2019-11-28] MEDS: Acetaminophen 325 MG TAB PO PRN (05:37)
[2019-11-28 08:13] LABS: INR-International Normal Ratio 2.8; Prothrombin Time 29.3 sec (12.0-14.7)
[2019-11-28] MEDS: Cyanocobalamin (Vitamin B-12) 1,000 MCG TAB PO SCH (08:36)
[2019-11-28] MEDS: Carvedilol 12.5 MG TAB PO SCH ×2 (08:36→17:39)
[2019-11-28] MEDS: Furosemide 20 MG TAB PO SCH (08:36)
[2019-11-28] MEDS: lamoTRIgine 25 MG TAB PO SCH (08:36)
[2019-11-28] MEDS: Potassium Chloride 20 MEQ TAB PO SCH (08:36)
[2019-11-28] MEDS: Amlodipine 5 MG TAB PO SCH (08:36)
[2019-11-28] MEDS: Folic Acid 1 MG TAB PO SCH (08:36)
[2019-11-28] MEDS: Venlafaxine XR 37.5 MG CAP PO SCH (08:36)
[2019-11-28] MEDS: Primidone 50 MG TAB PO SCH (08:36)
[2019-11-28] MEDS: Ferrous Sulfate 325 MG TAB PO SCH (08:37)
[2019-11-28] MEDS: Tamsulosin HCl 0.4 MG CAP PO SCH (08:37)
[2019-11-28] MEDS: Gabapentin 400 MG CAP PO SCH ×2 (08:37→21:03)
[2019-11-28] MEDS: Polyethylene Glycol 3350 17 GM Packet PO SCH (08:37)
[2019-11-28] MEDS: Warfarin Sodium 2 MG TAB PO SCH (17:40)
[2019-11-28] MEDS: Atorvastatin Calcium 10 MG TAB PO SCH (21:03)
[2019-11-28] MEDS: Mirtazapine 15 MG TAB PO SCH (21:03)
[2019-11-28] MEDS: Magnesium Oxide 400 MG TAB PO SCH (21:03)
[2019-11-29] MEDS: lamoTRIgine 25 MG TAB PO SCH (08:17)
[2019-11-29] MEDS: Venlafaxine XR 37.5 MG CAP PO SCH (08:18)
[2019-11-29] MEDS: Folic Acid 1 MG TAB PO SCH (08:18)
[2019-11-29] MEDS: Furosemide 20 MG TAB PO SCH (08:18)
[2019-11-29] MEDS: Cyanocobalamin (Vitamin B-12) 1,000 MCG TAB PO SCH (08:18)
[2019-11-29] MEDS: Primidone 50 MG TAB PO SCH (08:18)
[2019-11-29] MEDS: Gabapentin 400 MG CAP PO SCH ×2 (08:20→21:27)
[2019-11-29] MEDS: Ferrous Sulfate 325 MG TAB PO SCH (08:20)
[2019-11-29] MEDS: Amlodipine 5 MG TAB PO SCH (08:20)
[2019-11-29] MEDS: Tamsulosin HCl 0.4 MG CAP PO SCH (08:20)
[2019-11-29] MEDS: Carvedilol 12.5 MG TAB PO SCH ×2 (08:21→16:47)
[2019-11-29] MEDS: Potassium Chloride 20 MEQ TAB PO SCH (08:21)
[2019-11-29] MEDS: Polyethylene Glycol 3350 17 GM Packet PO SCH (08:21)
[2019-11-29] MEDS: Warfarin Sodium 2 MG TAB PO SCH (16:47)
[2019-11-29] MEDS: Atorvastatin Calcium 10 MG TAB PO SCH (21:27)
[2019-11-29] MEDS: Magnesium Oxide 400 MG TAB PO SCH (21:27)
[2019-11-29] MEDS: Mirtazapine 15 MG TAB PO SCH (21:27)
[2019-11-30 05:46] LABS: INR-International Normal Ratio 1.9; Prothrombin Time 21.3 sec (12.0-14.7)
[2019-11-30] MEDS: lamoTRIgine 25 MG TAB PO SCH (08:29)
[2019-11-30] MEDS: Venlafaxine XR 37.5 MG CAP PO SCH (08:29)
[2019-11-30] MEDS: Ferrous Sulfate 325 MG TAB PO SCH (08:30)
[2019-11-30] MEDS: Amlodipine 5 MG TAB PO SCH (08:30)
[2019-11-30] MEDS: Primidone 50 MG TAB PO SCH (08:30)
[2019-11-30] MEDS: Cyanocobalamin (Vitamin B-12) 1,000 MCG TAB PO SCH (08:30)
[2019-11-30] MEDS: Potassium Chloride 20 MEQ TAB PO SCH (08:31)
[2019-11-30] MEDS: Carvedilol 12.5 MG TAB PO SCH ×2 (08:31→17:27)
[2019-11-30] MEDS: Polyethylene Glycol 3350 17 GM Packet PO SCH (08:31)
[2019-11-30] MEDS: Furosemide 20 MG TAB PO SCH (08:31)
[2019-11-30] MEDS: Folic Acid 1 MG TAB PO SCH (08:31)
[2019-11-30] MEDS: Gabapentin 400 MG CAP PO SCH ×2 (08:31→20:33)
[2019-11-30] MEDS: Tamsulosin HCl 0.4 MG CAP PO SCH (08:31)
[2019-11-30] MEDS: Acetaminophen 325 MG TAB PO PRN (16:07)
[2019-11-30] MEDS: Warfarin Sodium 2 MG TAB PO SCH (17:29)
[2019-11-30] MEDS: Mirtazapine 15 MG TAB PO SCH (20:33)
[2019-11-30] MEDS: Atorvastatin Calcium 10 MG TAB PO SCH (20:33)
[2019-11-30] MEDS: Magnesium Oxide 400 MG TAB PO SCH (20:33)
[2019-11-30] MEDS ORDERED: Lisinopril 10 MG TAB PO SCH (21:00)
[2019-12-01 05:51] LABS: INR-International Normal Ratio 1.8; Prothrombin Time 20.9 sec (12.0-14.7)
[2019-12-01] MEDS: Potassium Chloride 20 MEQ TAB PO SCH (08:29)
[2019-12-01] MEDS: Gabapentin 400 MG CAP PO SCH ×2 (08:29→21:54)
[2019-12-01] MEDS: Amlodipine 5 MG TAB PO SCH (08:30)
[2019-12-01] MEDS: Lisinopril 10 MG TAB PO SCH (08:31)
[2019-12-01] MEDS: Venlafaxine XR 37.5 MG CAP PO SCH (08:31)
[2019-12-01] MEDS: Ferrous Sulfate 325 MG TAB PO SCH (08:32)
[2019-12-01] MEDS: Cyanocobalamin (Vitamin B-12) 1,000 MCG TAB PO SCH (08:32)
[2019-12-01] MEDS: Tamsulosin HCl 0.4 MG CAP PO SCH (08:32)
[2019-12-01] MEDS: Folic Acid 1 MG TAB PO SCH (08:32)
[2019-12-01] MEDS: Furosemide 20 MG TAB PO SCH (08:32)
[2019-12-01] MEDS: lamoTRIgine 25 MG TAB PO SCH (08:33)
[2019-12-01 08:34] VITALS: BMI 38.1
[2019-12-01] MEDS: Primidone 50 MG TAB PO SCH (09:05)
[2019-12-01] MEDS: Carvedilol 12.5 MG TAB PO SCH ×2 (09:05→16:43)
[2019-12-01] MEDS: Polyethylene Glycol 3350 17 GM Packet PO SCH (09:05)
[2019-12-01] MEDS ORDERED: Warfarin Sodium 2 MG TAB PO SCH (17:00)
[2019-12-01] MEDS ORDERED: Warfarin Sodium 5 MG TAB PO SCH (17:00)
[2019-12-01] MEDS: Atorvastatin Calcium 10 MG TAB PO SCH (21:54)
[2019-12-01] MEDS: Magnesium Oxide 400 MG TAB PO SCH (21:54)
[2019-12-01] MEDS: Mirtazapine 15 MG TAB PO SCH (21:55)
[2019-12-02 06:15] LABS: INR-International Normal Ratio 1.8; Prothrombin Time 20.7 sec (12.0-14.7)
[2019-12-02] MEDS: Carvedilol 12.5 MG TAB PO SCH (07:55)
[2019-12-02] MEDS: Potassium Chloride 20 MEQ TAB PO SCH (07:56)
[2019-12-02] MEDS: Ferrous Sulfate 325 MG TAB PO SCH (07:56)
[2019-12-02 08:35] VITALS: TEMP 97.7
[2019-12-02] MEDS: Amlodipine 5 MG TAB PO SCH (08:57)
[2019-12-02] MEDS: Lisinopril 10 MG TAB PO SCH (08:58)
[2019-12-02] MEDS: lamoTRIgine 25 MG TAB PO SCH (08:58)
[2019-12-02] MEDS: Furosemide 20 MG TAB PO SCH (08:58)
[2019-12-02] MEDS: Tamsulosin HCl 0.4 MG CAP PO SCH (08:58)
[2019-12-02] MEDS: Folic Acid 1 MG TAB PO SCH (08:58)
[2019-12-02] MEDS: Primidone 50 MG TAB PO SCH (08:58)
[2019-12-02] MEDS: Gabapentin 400 MG CAP PO SCH (08:58)
[2019-12-02] MEDS: Venlafaxine XR 37.5 MG CAP PO SCH (08:59)
[2019-12-02] MEDS: Polyethylene Glycol 3350 17 GM Packet PO SCH (08:59)
[2019-12-02] MEDS: Cyanocobalamin (Vitamin B-12) 1,000 MCG TAB PO SCH (08:59)
[2019-12-02 10:33] VITALS: BP 127/68
--- NOTE | 2019-12-02 13:56 | DIS ---
DATE OF ADMISSION: 10/25/2019 DATE OF DISCHARGE: 12/01/2019 REASON FOR ADMISSION: Skilled rehab in [place] after recent hospitalization. DISCHARGE DIAGNOSES: 1. Right femur displaced intertrochanteric fracture status post open reduction and internal fixation. 2. Physical deconditioning and general weakness. 3. Chronic atrial fibrillation, long-term use of warfarin. 4. Congestive heart failure, compensated. 5. Hypertension. 6. Anemia from acute blood loss. 7. Unsteady gait. SECONDARY DIAGNOSES: 1. Hyperlipidemia. 2. Chronic gastroesophageal reflux disease. 3. Chronic low back pain. 4. Depression and anxiety. 5. Benign prostatic hyperplasia. CODE STATUS: Full code. ALLERGIES: TO ASPIRIN AND PENICILLIN. MEDICATIONS: 1. Warfarin 7 mg p.o. at bedtime. 2. Atorvastatin 10 mg p.o. at bedtime. 3. Carvedilol 12.5 mg p.o. b.i.d. 4. Ferrous sulfate 325 mg p.o. daily. 5. Furosemide 40 mg p.o. daily. 6. KCl 20 mEq p.o. daily. 7. Lamotrigine 100 mg p.o. daily. 8. Lisinopril 10 mg p.o. daily. 9. Magnesium 400 mg p.o. at bedtime. 10. Mirtazapine 15 mg p.o. at bedtime. 11. Nitroglycerin 0.4 mg sublingual q.5 minutes p.r.n. for chest pain, may repeat x3 and call 911. 12. Omeprazole 20 mg p.o. daily. 13. Polyethylene glycol 17 g p.o. daily. 14. Tamsulosin 0.4 mg p.o. daily. 15. Venlafaxine XR 75 mg p.o. daily. 16. Gabapentin 400 mg p.o. b.i.d. 17. Cyanocobalamin p.o. daily. 18. Folic acid 1 mg p.o. daily. DIET: Low salt, low fat. ACTIVITY: To use rolling walker at all times. DISCHARGE INSTRUCTIONS: Fall precautions. Refer to home health for PT, OT and INR monitoring. Next INR is due in 3 days. Results to be forwarded to the patient's PCP. Home health staff was instructed. FOLLOWUP: 1. With PCP in 3 to 4 days, sooner with concern. Appointment to be arranged by the patient. 2. Follow up with Dr. Valiente/Ortho care as previously scheduled. HISTORY OF THE PRESENT ILLNESS AND HOSPITAL COURSE: Mr. Lam is a very pleasant 69-year-old male who has a history of hypertension, atrial fibrillation, long-term use of Coumadin, history of unsteady gait, COPD, and CHF. Uses the rolling walker at home. The patient had a fall at home and sustained a right femoral displaced intertrochanteric fracture. He underwent open reduction and internal fixation at [facility] on 10/23/2019. The postoperative course was associated with acute on chronic anemia secondary to postoperative blood loss and subtherapeutic INR due to Coumadin withheld prior to the operation. The patient was subsequently transferred to [facility] on 10/25/2019 for skilled rehab. The patient did remarkable rehab course in [facility]. He was walking 300 feet using rolling walker with standby assist prior to discharge. He already followed up with Ortho couple of times. The last ortho followup was on 12/01/2019 where he was cleared to go back home. There was a repeat x-ray at that time, which was reported by patient to be unremarkable. During the rehab course, the patient has had an acute onset of shortness of breath. He reports history of COPD with chronic respiratory failure, on continuous home O2. At that time, he had a mildly elevated D-dimer. CTA ruled out pulmonary embolism. There was an incidental finding of cholelithiasis and left lower lobe consolidation for which patient has been observed. There was also reported probable congestive heart failure. The patient had a volume retention which was treated with diuretics. The patient did well and his weight went down from admitting weight of 289 to a discharge weight of 280 pounds. He was on Lasix at 40 mg p.o. daily prior to discharge. There was no significant recurrence of shortness of breath. No chest pain over the course. He reports intermittent episodic cough mostly in the morning. He is recommended to follow up with PCP for this. During his rehab course, his INR was monitored closely. His Coumadin was titrated appropriately. His INR prior to discharge was running between 1.8 to 1.9. He is currently on 7 mg Coumadin at this time (combination of 2 mg and 5 mg Coumadin pills). LABORATORY DATA: 11/19/2019, hemoglobin 10.1, hematocrit 33.6. On 12/02/2019, PT 20.7, INR 1.8. 11/20/2019, sodium 145, potassium 3.9, BUN 27, creatinine 1.37, calcium 8.9. PHYSICAL EXAMINATION: VITAL SIGNS: Prior to discharge, blood pressure 153/57, temperature , pulse is 70, respirations 20, O2 saturations 94% on 2 L per nasal cannula. Weight 280 pounds, height 66. Job ID: [id number]
== END 2019-12-02 15:22 | disposition home or self-care (01) | DRG 560 ==
LOC: MADMS 14:30
PROVIDERS: ADMIT Family Medicine; ATTEND Family Medicine
DX: Z47.89 Encounter for other orthopedic aftercare (principal); I48.20 Chronic atrial fibrillation, unspecified; D62 Acute posthemorrhagic anemia; I11.0 Hypertensive heart disease with heart failure; E78.5 Hyperlipidemia, unspecified; F32.9 Major depressive disorder, single episode, unspecified; F41.9 Anxiety disorder, unspecified; N40.0 Benign prostatic hyperplasia without lower urinary tract symptoms; K21.9 Gastro-esophageal reflux disease without esophagitis; R26.9 Unspecified abnormalities of gait and mobility; R53.81 Other malaise; G89.4 Chronic pain syndrome; I50.9 Heart failure, unspecified; S72.141D Displaced intertrochanteric fracture of right femur, subsequent encounter for closed fracture with routine healing; Z79.01 Long term (current) use of anticoagulants; Z88.0 Allergy status to penicillin; Z88.8 Allergy status to other drugs, medicaments and biological substances
CPT/HCPCS: 36415; 36416; 71045; 71275; 80048; 80053; 82553; 82565; 83880; 84484; 85014; 85018; 85025; 85027; 85049; 85379; 85610; 85730; G0283-GP; J1650; J1940; J3490; Q9967

== ENCOUNTER 2019-12-07 15:54 | Emergency (ER) | payer MEDICARE ==
[2019-12-07 16:37] LABS: #Eosinphils 0.1 thou/uL (0.0-0.7); #Lymphocytes 1.1 thou/uL (1.20-3.40); #Monocytes 0.7 thou/uL (0.11-0.59); #Neutrophils 4.3 thou/uL (1.40-6.50); %Basophils 0.4 % (0.0-1.0); %Eosinophils 1.5 % (0.0-10.0); %Lymphocytes 17.4 % (21.0-51.0); %Monocytes 10.9 % (0.0-10.0); %Neutrophils 69.9 % (42.0-75.0); Hemoglobin 9.8 g/dL (14.0-18.0); Mean Corpuscular Hemoglobin 29.6 pg (27.0-31.0); Mean Corpuscular Volume 101.9 fL (78.0-98.0); Mean Platelet Volume 8.5 fL (7.4-10.4); Platelet Count 173 thou/uL (130-400); RBC Distribution Width 15.7 % (11.5-14.5); Red Blood Cell (RBC) Count 3.33 mill/uL (4.70-6.10); White Blood Cell (WBC) Count 6.1 thou/uL (4.8-10.8)
[2019-12-07 16:55] LABS: ALT (SGPT) 11 U/L (8-55); AST (SGOT) 18 U/L (5-34); Albumin 3.7 g/dL (3.4-4.8); Alkaline Phosphatase 177 U/L (40-110); Anion Gap 14 mmol/L (10-20); BUN (Urea Nitrogen) 18 mg/dL (8.4-25.7); Bilirubin, Total 0.6 mg/dL (0.2-1.2); CK (CPK) 72 U/L (30-200); Calc. Creatinine Clearance 0 mL/min (70-130); Calcium 8.9 mg/dL (7.8-10.44); Carbon Dioxide 34 mmol/L (23-31); Chloride 101 mmol/L (98-107); Estimated GFR-MDRD 55; Globulin 4.1 g/dL (2.4-3.5); Glucose 107 mg/dL (80-115); Potassium 4.9 mmol/L (3.5-5.1); Protein, Total 7.8 g/dL (5.8-8.1); Sodium 144 mmol/L (136-145)
== END 2019-12-07 19:10 | disposition home or self-care (01) ==
LOC: MADERS 15:54
DX: T44.7X1A Poisoning by beta-adrenoreceptor antagonists, accidental (unintentional), initial encounter (principal); F32.9 Major depressive disorder, single episode, unspecified; K21.9 Gastro-esophageal reflux disease without esophagitis; I10 Essential (primary) hypertension; Z86.718 Personal history of other venous thrombosis and embolism; Z79.899 Other long term (current) drug therapy
CPT/HCPCS: 36415; 80053; 82550; 84484; 85025; 93005

== ENCOUNTER 2019-12-14 21:35 | Emergency (ER) | payer MEDICARE ==
[2019-12-14] MEDS ORDERED: Furosemide 40 MG/4 ML VIAL ONE (21:58)
[2019-12-14 22:31] LABS: Hemoglobin 9.7 g/dL (14.0-18.0); Mean Corpuscular HGB CONC 28.5 g/dL (32.0-36.0); Mean Corpuscular Hemoglobin 29.1 pg (27.0-31.0); Mean Corpuscular Volume 102.1 fL (78.0-98.0); Mean Platelet Volume 8.6 fL (7.4-10.4); Platelet Count 247 thou/uL (130-400); RBC Distribution Width 17.1 % (11.5-14.5); Red Blood Cell (RBC) Count 3.32 mill/uL (4.70-6.10); White Blood Cell (WBC) Count 6.3 thou/uL (4.8-10.8)
[2019-12-14 22:34] LABS: Bilirubin Negative (Negative); Blood, Urine Negative (Negative); Clarity Clear (Clear); Glucose, Urine (Dipstick) Negative (Negative); Ketone, Urine Negative (Negative); Leukocyte Negative (Negative); Nitrite Negative (Negative); Protein, Urine (Dipstick) 30 mg/dL (Neg-Trace); Specific Gravity, Urine 1.025 (1.005-1.030); Urobilinogen 0.2 mg/dL (Less than 2); pH, Urine 5.5 (5.0-9.0)
[2019-12-14 22:35] LABS: INR-International Normal Ratio 1.9; Prothrombin Time 21.6 sec (12.0-14.7)
[2019-12-14 22:36] LABS: PTT 37.7 sec (22.9-36.1)
[2019-12-14 22:37] LABS: Amphetamine Not Detected (NotDetected); Barbiturates Screen Detected (NotDetected); Benzodiazepine Screen Not Detected (NotDetected); Cocaine Metabolite Screen Not Detected (NotDetected); Medtox Control Line Valid? VALID (VALID); Methadone Not Detected (NotDetected); Methamphetamine Not Detected (NotDetected); Opiate Screen Not Detected (NotDetected); Oxycodone Screen Not Detected (NotDetected); Phencyclidine (PCP) Not Detected (NotDetected); THC/Cannabinoid Screen Not Detected (NotDetected); Tricyclic Screen Not Detected (NotDetected)
[2019-12-14] MEDS ORDERED: Multivit, Adult Inj 10 ML VIAL ONE (22:40)
[2019-12-14 22:42] LABS: RBC/HPF None Seen HPF (0-3); Squamous Epithelial 0-3 HPF (0-3); WBC/HPF None Seen HPF (0-3)
[2019-12-14 22:43] LABS: Bacteria/HPF None Seen HPF (None Seen); Mucous/LPF 1+ LPF (<2+)
[2019-12-14 22:45] LABS: #Eosinphils 0.2 thou/uL (0.0-0.7); #Lymphocytes 1.2 thou/uL (1.20-3.40); #Monocytes 0.5 thou/uL (0.11-0.59); #Neutrophils 4.3 thou/uL (1.40-6.50); %Basophils 0.6 % (0.0-1.0); %Eosinophils 3.2 % (0.0-10.0); %Monocytes 8.4 % (0.0-10.0); %Neutrophils 68.8 % (42.0-75.0); Hypochromia SLIGHT = 6-15 cells (100X) (0-5/hpf); MDiff Complete? YES; Macrocytosis SLIGHT = 6-15 cells (100X) (0-5/hpf); Platelet Morphology Comment Appears Adequate
[2019-12-14 22:46] LABS: ALT (SGPT) 12 U/L (8-55); AST (SGOT) 13 U/L (5-34); Albumin 3.2 g/dL (3.4-4.8); Alcohol Less than 10 mg/dL (Less than 10); Alkaline Phosphatase 145 U/L (40-110); Anion Gap 13 mmol/L (10-20); BUN (Urea Nitrogen) 28 mg/dL (8.4-25.7); Bilirubin, Total 0.4 mg/dL (0.2-1.2); CK (CPK) 25 U/L (30-200); Calc. Creatinine Clearance 0 mL/min (70-130); Calcium 8.5 mg/dL (7.8-10.44); Carbon Dioxide 33 mmol/L (23-31); Chloride 103 mmol/L (98-107); Estimated GFR-MDRD 48; Glucose 126 mg/dL (80-115); Potassium 4.8 mmol/L (3.5-5.1); Protein, Total 7.2 g/dL (5.8-8.1); Sodium 144 mmol/L (136-145)
[2019-12-14] MEDS ORDERED: Cyanocobalamin 1000 MCG/ML VIAL ONE (22:47)
--- NOTE | 2019-12-15 06:38 | CT ---
CT HEAD WITHOUT CONTRAST: Date: 12/14/2019 INDICATION: Injury. Comparison made to head CT of 09/16/2019. FINDINGS: No evidence of intracranial hemorrhage. Mild cortical volume loss is stable. No infarct, mass, or do ma. No interval change or acute finding. Fibrous dysplasia type findings in the frontal bone again noted and unchanged in appearance. IMPRESSION: No acute process. POS: AGW
--- NOTE | 2019-12-15 06:39 | CT ---
CT CERVICAL SPINE: Date: 12/14/2019 HISTORY: Fall with injury. FINDINGS: Cervical vertebra maintain height and alignment. There are degenerative changes in the cervical spine . No evidence of acute fracture. IMPRESSION: No acute cervical spine fracture identified. POS: ESVINW
== END 2019-12-15 | disposition home or self-care (01) ==
LOC: MADERS 21:35
DX: S13.4XXA Sprain of ligaments of cervical spine, initial encounter (principal); I95.1 Orthostatic hypotension; E78.5 Hyperlipidemia, unspecified; I10 Essential (primary) hypertension; K21.9 Gastro-esophageal reflux disease without esophagitis; F41.9 Anxiety disorder, unspecified; Z79.899 Other long term (current) drug therapy; W18.30XA Fall on same level, unspecified, initial encounter
CPT/HCPCS: 70450; 72125; 80053; 80306; 80307; 81003; 81015; 82550; 85025; 85610; 85730; 94760; 96372; 96374; J1940; J3420

== ENCOUNTER 2020-01-16 02:48 | Emergency (ER) | payer MEDICARE, OTHER ==
[2020-01-16 03:25] LABS: #Eosinphils 0.3 thou/uL (0.0-0.7); #Monocytes 0.5 thou/uL (0.11-0.59); #Neutrophils 3.3 thou/uL (1.40-6.50); %Basophils 0.4 % (0.0-1.0); %Eosinophils 5.1 % (0.0-10.0); %Lymphocytes 19.7 % (21.0-51.0); %Monocytes 9.7 % (0.0-10.0); %Neutrophils 65.2 % (42.0-75.0); Hemoglobin 9.8 g/dL (14.0-18.0); Mean Corpuscular HGB CONC 28.5 g/dL (32.0-36.0); Mean Corpuscular Hemoglobin 27.3 pg (27.0-31.0); Mean Corpuscular Volume 95.8 fL (78.0-98.0); Platelet Count 199 thou/uL (130-400); RBC Distribution Width 17.2 % (11.5-14.5)
[2020-01-16 03:27] LABS: INR-International Normal Ratio 2.6; Prothrombin Time 27.5 sec (12.0-14.7)
[2020-01-16 03:31] LABS: Anion Gap 13 mmol/L (10-20); BUN (Urea Nitrogen) 16 mg/dL (8.4-25.7); Calc. Creatinine Clearance 0 mL/min (70-130); Calcium 8.4 mg/dL (7.8-10.44); Carbon Dioxide 33 mmol/L (23-31); Chloride 104 mmol/L (98-107); Estimated GFR-MDRD 56; Glucose 116 mg/dL (80-115); Potassium 4.1 mmol/L (3.5-5.1); Sodium 146 mmol/L (136-145)
[2020-01-16 03:39] LABS: Anisocytosis SLIGHT = 6-15 cells (100X) (0-5/hpf); Platelet Morphology Comment Appears Adequate
[2020-01-16] MEDS ORDERED: Ketorolac Tromethamine 30 MG/ML VIAL ONE (04:02)
--- NOTE | 2020-01-16 07:41 | CT ---
PRELIMINARY REPORT/[facility]/EMERGENCY AFTER HOURS PROCEDURE EXAM: CT Cervical Spine Without Intravenous Contrast. CLINICAL HISTORY: PT FELL IN SHOWER TECHNIQUE: Axial computed tomography images of the cervical spine without intravenous contrast. Sagittal and cor onal reformations performed. COMPARISON: None provided. FINDINGS: BONES: No acute fracture or focal osseous lesion. Bony alignment is anatomic. DISCS / DEGENERATIVE CHANGES: No significant disc or facet degeneration. No significant central canal or neural foraminal stenosis. SOFT TISSUES: No prevertebral soft tissue swelling. No apical pneumothorax. IMPRESSION: No acute cervical spine abnormality. ELECTRONICALLY SIGNED BY: Bereket Son DO Jan 16, 2020 3:51:03 AM CDT This report is intended for review by the ordering physician only, in accordance of law. If you recei ve this report in error, please call [facility] at [phone]. FINAL REPORT Final report by Dr. Crawford Emergency after-hours study CT CERVICAL SPINE NONCONTRAST: DATE: 01/16/2020 3:31 AM HISTORY: cervical trauma. 69-year-old male status post fall. FINDINGS: There are no jumped or perched facets. There is no evidence of acute fracture. The vertebral body hei ghts are maintained. There is no prevertebral soft tissue swelling. Agree with preliminary report by [facility]. IMPRESSION: No evidence of acute fracture or acute traumatic subluxation. Transcribed Date/Time: 01/16/2020 7:52 AM
--- NOTE | 2020-01-16 07:45 | RAD ---
RADIOGRAPH RIGHT ELBOW 4VIEWS: DATE: 01/16/2020 3:18 AM HISTORY: 69-year-old male status post acute blunt trauma to right elbow from fall FINDINGS: There is no evidence of fracture or dislocation. There is no evidence of periostitis, permeative lesi on, osteolytic lesion, or osteoblastic lesion. The joint spaces are maintained without erosions or significant osteophytes. No joint effusion is identified. IMPRESSION: Normal
--- NOTE | 2020-01-16 07:50 | CT ---
PRELIMINARY REPORT/[facility]/EMERGENCY AFTER HOURS PROCEDURE EXAM: CT Head Without Intravenous Contrast. CLINICAL HISTORY: FALL IN SHOWER, PT STATES HE HIT HIS HEAD TECHNIQUE: Axial computed tomography images of the head/brain without intravenous contrast. COMPARISON: None provided. FINDINGS: BRAIN: No acute intraparenchymal hemorrhage. No mass lesion. No CT evidence for acute territorial infarct. N o midline shift or extra-axial collection. VENTRICLES: No hydrocephalus. ORBITS: The orbits are unremarkable. SINUSES AND MASTOIDS: The paranasal sinuses and mastoid air cells are clear. SOFT TISSUES: No significant facial or scalp soft tissue swelling evident. No radiopaque foreign body is seen. BONES: No acute skull fracture. Expanded appearance of the frontal bones with opacified diploic space which may represent hypo-pneumatized frontal sinuses. IMPRESSION: No acute intracranial abnormality. ELECTRONICALLY SIGNED BY: Bereket Son DO Jan 16, 2020 3:50:24 AM CDT This report is intended for review by the ordering physician only, in accordance of law. If you recei ve this report in error, please call [facility] at [phone]. FINAL REPORT BRAIN CT WITHOUT IV CONTRAST: EMERGENCY AFTER HOURS EXAM TIME: 3:29 AM. DATE: 01/16/2020. COMPARISON: 12/20/2019. No mass or bleed or other acute process. Stable-appearing thickened bifrontal diploic space possibly related to some type of fibrous osseous disease including fibrous dysplasia. Appearance is stable. This report agrees with the preliminary report. POS: RRE
--- NOTE | 2020-01-16 07:54 | RAD ---
Radiograph right hip 2 views: 01/16/2020 HISTORY: 69-year-old male with right hip pain due to trauma, status post fall COMPARISON: Femur radiograph of 10/18/2019 FINDINGS: The previously demonstrated acute, traumatic, spiral fracture with comminution including large butter fly fragment, has been reduced and fixated with intramedullary nail, the inferior portion of which is outside of the field of view on the current study. There is a new finding of exuberant callus form ation. Fracture lucency and some displacement is visible, although the alignment has significantly improved since the prior study. There is a dynamic compression screw at the femoral head. There is no dislocation at the hip. Because there are no post fixation radiographs, it is difficult to determine whether the currently visible fracture lucencies are old or new. IMPRESSION: 1.) Status post intramedullary nail with dynamic compression screw fixation of previously demonstrate d comminuted subtrochanteric proximal femoral shaft fracture. 2) exuberant callus and fracture lucency visible on the current study. See above comments.
== END 2020-01-16 04:30 | disposition home or self-care (01) ==
LOC: MADERS 02:48
DX: S00.93XA Contusion of unspecified part of head, initial encounter (principal); M54.6 Pain in thoracic spine; I73.9 Peripheral vascular disease, unspecified; I11.0 Hypertensive heart disease with heart failure; I50.9 Heart failure, unspecified; K21.9 Gastro-esophageal reflux disease without esophagitis; G47.30 Sleep apnea, unspecified; I25.10 Atherosclerotic heart disease of native coronary artery without angina pectoris; E66.9 Obesity, unspecified; I48.91 Unspecified atrial fibrillation; G62.9 Polyneuropathy, unspecified; F32.9 Major depressive disorder, single episode, unspecified; F41.9 Anxiety disorder, unspecified; N40.0 Benign prostatic hyperplasia without lower urinary tract symptoms; Z79.899 Other long term (current) drug therapy; Z86.718 Personal history of other venous thrombosis and embolism; Z87.01 Personal history of pneumonia (recurrent); Z79.01 Long term (current) use of anticoagulants; W18.11XA Fall from or off toilet without subsequent striking against object, initial encounter
CPT/HCPCS: 70450; 72125; 80048; 85025; 85610; 96374; J1885

== ENCOUNTER 2020-06-07 13:21 | Emergency (ER) | payer MEDICARE | END 2020-06-07 16:30 | disposition left against medical advice (07) | LOC: MADERS 13:21 | DX: Z53.21 Procedure and treatment not carried out due to patient leaving prior to being seen by health care provider (principal) ==

== ENCOUNTER 2020-07-09 10:49 | Emergency (ER) | payer MEDICARE ==
[2020-07-09 12:23] LABS: #Eosinphils 0.1 thou/uL (0.0-0.7); #Lymphocytes 1.5 thou/uL (1.20-3.40); #Monocytes 0.7 thou/uL (0.11-0.59); #Neutrophils 6.9 thou/uL (1.40-6.50); %Basophils 0.5 % (0.0-1.0); %Eosinophils 1.2 % (0.0-10.0); %Lymphocytes 16.4 % (21.0-51.0); %Monocytes 7.6 % (0.0-10.0); %Neutrophils 74.3 % (42.0-75.0); Hemoglobin 14.2 g/dL (14.0-18.0); Mean Corpuscular HGB CONC 31.9 g/dL (32.0-36.0); Mean Corpuscular Hemoglobin 31.1 pg (27.0-31.0); Mean Corpuscular Volume 97.4 fL (78.0-98.0); Mean Platelet Volume 9.5 fL (7.4-10.4); Platelet Count 189 thou/uL (130-400); Red Blood Cell (RBC) Count 4.56 mill/uL (4.70-6.10); White Blood Cell (WBC) Count 9.3 thou/uL (4.8-10.8)
[2020-07-09] MEDS ORDERED: Sodium Chloride 0.9% 1,000 ML ONE (12:25)
[2020-07-09] MEDS ORDERED: Dicyclomine 10 MG CAP ONE (12:25)
[2020-07-09] MEDS ORDERED: Lidocaine 2% w/Epinephrine 1:200K 20 ML VIAL ONE (12:25)
[2020-07-09] MEDS ORDERED: Loperamide HCl 2 MG CAP ONE (12:25)
[2020-07-09 12:37] LABS: AST (SGOT) 13 U/L (5-34); Albumin 3.7 g/dL (3.4-4.8); Alkaline Phosphatase 83 U/L (40-110); Anion Gap 14 mmol/L (10-20); BUN (Urea Nitrogen) 23 mg/dL (8.4-25.7); Bilirubin, Total 1.8 mg/dL (0.2-1.2); Calc. Creatinine Clearance 0 mL/min (70-130); Calcium 9.1 mg/dL (7.8-10.44); Carbon Dioxide 28 mmol/L (23-31); Chloride 99 mmol/L (98-107); Globulin 4.1 g/dL (2.4-3.5); Glucose 117 mg/dL (80-115); Lipase 16 U/L (8-78); Potassium 4.2 mmol/L (3.5-5.1); Protein, Total 7.8 g/dL (5.8-8.1); Sodium 137 mmol/L (136-145)
--- NOTE | 2020-07-09 13:52 | CT ---
CT ABDOMEN AND PELVIS WITH IV CONTRAST 07/09/2020 CLINICAL INFORMATION: Diffuse abdominal pain and diarrhea. COMPARISON: None. Technique: Multiple contiguous axial CT images are obtained through the abdomen and pelvis with IV contrast. Cor onal reformatted images are provided. FINDINGS: Lower Chest: Trace left pleural fluid is seen which may be loculated. Calcifications are seen at each lung base probably pleural-based. These findings were also seen on CTA chest on 11/01/2019. Heart is mildly enlarged. Vessels: Vascular calcifications are seen in the abdominal aorta and in the iliac arteries. Abdomen: Portal vein:Patent Gallbladder: Multiple gallbladder calculi visualized. Liver: within normal limits. Spleen: within normal limits. Pancreas: within normal limits. Adrenals: within normal limits. Kidneys: Right kidney is atrophic compared to the left kidney with associated renal cortical thinning . Subcentimeter too small to characterize hypodense lesions are seen involving each kidney. Bowel: There is evidence of colonic diverticulosis. There is a 1.8 cm gas density in the distal sigmo id colon which may represent an enlarged diverticulum, but small focal contained perforation would be difficult to entirely exclude. No drainable fluid collection is seen. There is inflammatory strand ing seen adjacent to the sigmoid colon with bowel wall thickening present. Findings may be related to diverticulitis. Prominent pericolonic inflammatory stranding is seen in this region. There is mild wall thickening involving the distal ileum which may be reactive in origin. There is also eccentric wall thickening involving the lower rectum. Mass in this region cannot be entirely excluded . This would be better evaluated with direct visualization. Appendix: Not visualized. Peritoneum: Small amount of free fluid is seen in the right lower quadrant of the abdomen. Mesentery and Retroperitoneum: No enlarged mesenteric or retroperitoneal lymph nodes. Abdominal Wall: within normal limits. Pelvis: Reproductive Organs: No pelvic masses. Bladder: within normal limits. Bones: Degenerative changes are seen in the spine. Postoperative changes right hip are seen. IMPRESSION: 1. Findings most suggestive of diverticulitis involving the sigmoid colon. There is a 1.8 cm gas dens ity seen in the central pelvis adjacent to the sigmoid colon which probably represents a prominent diverticulum or less likely a small focal contained perforation. There is no drainable abscess collec tion seen on this examination. Prominent pericolonic inflammatory changes and fluid are seen in this region. Follow-up evaluation is recommended to ensure resolution of inflammatory changes and col onic wall thickening. 2. Eccentric area of thickening involving the lower rectum. This may be attributable to peristalsis, but a lesion/mass is a possibility. Direct visualization is recommended for further evaluation. 3. Prominent inflammatory stranding and fluid in the right lower quadrant abdomen as well as extendin g into the pelvis. No free intraperitoneal gas is seen. 4. Atrophic right kidney with renal cortical thinning. Too small to characterize hypodense lesions a re seen in each kidney. 5. Cholelithiasis. 6. Findings most suggestive of chronic changes left lung base with minimal loculated pleural fluid co llection with associated scarring or atelectasis and pleural-based calcifications.
[2020-07-09] MEDS ORDERED: metroNIDAZOLE 500 MG/100 ML BAG ONE (14:08)
[2020-07-09 14:31] LABS: ALT (SGPT) 10 U/L (8-55)
[2020-07-09 15:11] LABS: Bilirubin Negative (Negative); Blood, Urine Trace (Negative); Clarity Clear (Clear); Glucose, Urine (Dipstick) Negative (Negative); Ketone, Urine Negative (Negative); Leukocyte Negative (Negative); Nitrite Negative (Negative); Protein, Urine (Dipstick) 30 mg/dL (Neg-Trace); Urobilinogen 0.2 mg/dL (Less than 2); pH, Urine 5.5 (5.0-9.0)
[2020-07-09 15:15] LABS: Amphetamine Not Detected (NotDetected); Barbiturates Screen Not Detected (NotDetected); Benzodiazepine Screen Not Detected (NotDetected); Cocaine Metabolite Screen Not Detected (NotDetected); Medtox Control Line Valid? VALID (VALID); Methadone Not Detected (NotDetected); Methamphetamine Not Detected (NotDetected); Opiate Screen Not Detected (NotDetected); Oxycodone Screen Not Detected (NotDetected); Phencyclidine (PCP) Not Detected (NotDetected); THC/Cannabinoid Screen Not Detected (NotDetected); Tricyclic Screen Not Detected (NotDetected)
[2020-07-09] MEDS ORDERED: Ciprofloxacin Lactate/D5W 400 mg/200 ml Premix ONE (15:15)
[2020-07-09 15:16] LABS: Bacteria/HPF Rare-Few HPF (None Seen); RBC/HPF 0-3 HPF (0-3); Squamous Epithelial 0-3 HPF (0-3); WBC/HPF None Seen HPF (0-3)
== END 2020-07-09 16:45 | disposition home or self-care (01) ==
LOC: MADERS 10:49
DX: K57.20 Diverticulitis of large intestine with perforation and abscess without bleeding (principal); I11.0 Hypertensive heart disease with heart failure; I50.9 Heart failure, unspecified; E78.5 Hyperlipidemia, unspecified; I73.9 Peripheral vascular disease, unspecified; K21.9 Gastro-esophageal reflux disease without esophagitis; E66.9 Obesity, unspecified; I25.10 Atherosclerotic heart disease of native coronary artery without angina pectoris; G47.30 Sleep apnea, unspecified; G62.9 Polyneuropathy, unspecified; I48.91 Unspecified atrial fibrillation; N40.0 Benign prostatic hyperplasia without lower urinary tract symptoms; Z87.01 Personal history of pneumonia (recurrent); Z86.718 Personal history of other venous thrombosis and embolism; Z79.01 Long term (current) use of anticoagulants; Z79.899 Other long term (current) drug therapy
CPT/HCPCS: 74177; 80053; 80306; 81003; 81015; 83605; 83690; 83880; 85025; 86140; 87045; 87046; 87324; 87427; 87449; 96365; 96367; J0744; J7050

== ENCOUNTER 2020-07-18 21:06 | Emergency (ER) | payer MEDICARE, OTHER | END 2020-07-19 13:00 | disposition home or self-care (01) | LOC: MADERS 21:06 | DX: J44.9 Chronic obstructive pulmonary disease, unspecified (principal); E78.5 Hyperlipidemia, unspecified; I11.0 Hypertensive heart disease with heart failure; I50.9 Heart failure, unspecified; I73.9 Peripheral vascular disease, unspecified; K21.9 Gastro-esophageal reflux disease without esophagitis; E66.9 Obesity, unspecified; I25.10 Atherosclerotic heart disease of native coronary artery without angina pectoris; G62.9 Polyneuropathy, unspecified; G47.30 Sleep apnea, unspecified; N40.0 Benign prostatic hyperplasia without lower urinary tract symptoms; Z86.718 Personal history of other venous thrombosis and embolism; Z87.01 Personal history of pneumonia (recurrent); Z79.899 Other long term (current) drug therapy | CPT/HCPCS: 99283 ==

== ENCOUNTER 2021-05-09 10:45 | Emergency (ER) | payer MEDICARE, OTHER ==
[2021-05-09] MEDS ORDERED: Sodium Chloride 0.9% 500 ML ONE (11:49)
[2021-05-09] MEDS ORDERED: Meropenem 1 GM VIAL ONE (11:49)
[2021-05-09] MEDS ORDERED: Sodium Chloride 0.9% 100 ML ONE (11:49)
[2021-05-09] MEDS ORDERED: Clindamycin/D5W 900 mg/50 ml Premix Bag ONE (11:49)
[2021-05-09 12:15] LABS: #Eosinphils 0.2 thou/uL (0.0-0.7); #Lymphocytes 1.4 thou/uL (1.20-3.40); #Neutrophils 6.8 thou/uL (1.40-6.50); %Basophils 0.4 % (0.0-1.0); %Eosinophils 1.8 % (0.0-10.0); %Lymphocytes 14.6 % (21.0-51.0); %Monocytes 10.1 % (0.0-10.0); %Neutrophils 73.1 % (42.0-75.0); Hemoglobin 12.2 g/dL (14.0-18.0); Mean Corpuscular HGB CONC 31.8 g/dL (32.0-36.0); Mean Corpuscular Hemoglobin 32.8 pg (27.0-31.0); Mean Corpuscular Volume 103.1 fL (78.0-98.0); Platelet Count 184 thou/uL (130-400); RBC Distribution Width 11.7 % (11.5-14.5); Red Blood Cell (RBC) Count 3.71 mill/uL (4.70-6.10); White Blood Cell (WBC) Count 9.4 thou/uL (4.8-10.8)
[2021-05-09 12:33] LABS: ALT (SGPT) 8 U/L (8-55); AST (SGOT) 15 U/L (5-34); Albumin 3.4 g/dL (3.4-4.8); Alkaline Phosphatase 51 U/L (40-110); Anion Gap 17 mmol/L (10-20); BUN (Urea Nitrogen) 31 mg/dL (8.4-25.7); Bilirubin, Total 1.1 mg/dL (0.2-1.2); Calc. Creatinine Clearance 0 mL/min (70-130); Calcium 9.3 mg/dL (7.8-10.44); Carbon Dioxide 27 mmol/L (23-31); Chloride 99 mmol/L (98-107); Globulin 4.2 g/dL (2.4-3.5); Glucose 95 mg/dL (83-110); Potassium 4.7 mmol/L (3.5-5.1); Protein, Total 7.6 g/dL (5.8-8.1); Sodium 138 mmol/L (136-145)
[2021-05-09] MEDS ORDERED: Boostrix 0.5 ML (Tdap) VIAL ONE (12:35)
== END 2021-05-09 14:55 | disposition short-term general hospital (02) ==
LOC: MADERS 10:45
DX: L03.115 Cellulitis of right lower limb (principal); N17.9 Acute kidney failure, unspecified; R79.82 Elevated C-reactive protein (CRP); I11.0 Hypertensive heart disease with heart failure; I50.9 Heart failure, unspecified; E78.5 Hyperlipidemia, unspecified; K21.9 Gastro-esophageal reflux disease without esophagitis; E66.9 Obesity, unspecified; I25.10 Atherosclerotic heart disease of native coronary artery without angina pectoris; G62.9 Polyneuropathy, unspecified; I48.91 Unspecified atrial fibrillation; Z79.899 Other long term (current) drug therapy
CPT/HCPCS: 80053; 83605; 85025; 86140; 87040; 90471; 90715; 96365; 96367; J2185; J3370; J3490; J7030

== ENCOUNTER 2021-05-27 22:28 | Emergency (ER) | payer MEDICARE ==
[2021-05-27] MEDS ORDERED: Adenosine 6 MG/2 ML VIAL ONE (23:35)
[2021-05-27 23:57] LABS: #Basophils 0.1 thou/uL (0.0-0.2); #Eosinphils 0.3 thou/uL (0.0-0.7); #Lymphocytes 2.4 thou/uL (1.20-3.40); #Monocytes 0.8 thou/uL (0.11-0.59); #Neutrophils 3.4 thou/uL (1.40-6.50); %Basophils 0.9 % (0.0-1.0); %Eosinophils 4.3 % (0.0-10.0); %Monocytes 11.4 % (0.0-10.0); %Neutrophils 49.4 % (42.0-75.0); Hemoglobin 13.6 g/dL (14.0-18.0); Mean Corpuscular HGB CONC 31.5 g/dL (32.0-36.0); Mean Corpuscular Hemoglobin 31.4 pg (27.0-31.0); Mean Corpuscular Volume 99.8 fL (78.0-98.0); Mean Platelet Volume 8.7 fL (7.4-10.4); Platelet Count 225 thou/uL (130-400); RBC Distribution Width 11.7 % (11.5-14.5); Red Blood Cell (RBC) Count 4.31 mill/uL (4.70-6.10)
[2021-05-28 00:16] LABS: ALT (SGPT) 10 U/L (8-55); AST (SGOT) 16 U/L (5-34); Albumin 3.7 g/dL (3.4-4.8); Alkaline Phosphatase 59 U/L (40-110); Anion Gap 12 mmol/L (10-20); BUN (Urea Nitrogen) 32 mg/dL (8.4-25.7); Bilirubin, Total 0.7 mg/dL (0.2-1.2); Calc. Creatinine Clearance 0 mL/min (70-130); Calcium 9.7 mg/dL (7.8-10.44); Carbon Dioxide 33 mmol/L (23-31); Chloride 101 mmol/L (98-107); Globulin 3.8 g/dL (2.4-3.5); Glucose 109 mg/dL (83-110); Potassium 3.8 mmol/L (3.5-5.1); Protein, Total 7.5 g/dL (5.8-8.1); Sodium 142 mmol/L (136-145)
[2021-05-28 00:34] LABS: CKMB 4.7 ng/mL (0-6.6)
== END 2021-05-28 00:22 | disposition short-term general hospital (02) ==
LOC: MADERS 22:28
DX: I48.91 Unspecified atrial fibrillation (principal); I47.1 Supraventricular tachycardia; I10 Essential (primary) hypertension; E78.5 Hyperlipidemia, unspecified; Z86.718 Personal history of other venous thrombosis and embolism; K21.9 Gastro-esophageal reflux disease without esophagitis; E66.9 Obesity, unspecified; Z79.899 Other long term (current) drug therapy
CPT/HCPCS: 71045; 80053; 82553; 83605; 83880; 84484; 85025; 93005; J0153

== ENCOUNTER 2023-05-24 16:19 | Emergency (ER) | payer OTHER ==
[2023-05-24] MEDS ORDERED: Clindamycin 150 MG CAP ONE ×2 (17:05→17:07)
== END 2023-05-24 17:10 | disposition home or self-care (01) ==
LOC: MADERS 16:19
DX: K04.7 Periapical abscess without sinus (principal); I11.0 Hypertensive heart disease with heart failure; I50.9 Heart failure, unspecified; I48.91 Unspecified atrial fibrillation; I25.10 Atherosclerotic heart disease of native coronary artery without angina pectoris; E66.9 Obesity, unspecified; G62.9 Polyneuropathy, unspecified; E78.5 Hyperlipidemia, unspecified; Z79.01 Long term (current) use of anticoagulants; Z79.899 Other long term (current) drug therapy
CPT/HCPCS: 99283

== ENCOUNTER 2023-05-29 11:48 | Emergency (ER) | payer OTHER ==
[2023-05-29] MEDS ORDERED: Nitroglycerin 0.4 MG TAB 1 EACH ONE (12:15)
[2023-05-29 12:16] LABS: #Eosinphils 0.2 thou/uL (0.0-0.7); #Lymphocytes 0.7 thou/uL (1.20-3.40); #Monocytes 0.5 thou/uL (0.11-0.59); #Neutrophils 4.4 thou/uL (1.40-6.50); %Basophils 0.8 % (0.0-1.0); %Eosinophils 3.3 % (0.0-10.0); %Lymphocytes 12.3 % (21.0-51.0); %Monocytes 9.2 % (0.0-10.0); %Neutrophils 74.3 % (42.0-75.0); Hematocrit 48.1 % (42.0-52.0); Hemoglobin 15.1 g/dL (14.0-18.0); Mean Corpuscular HGB CONC 31.5 g/dL (32.0-36.0); Mean Corpuscular Hemoglobin 32.3 pg (27.0-31.0); Mean Corpuscular Volume 102.6 fl (78.0-98.0); Mean Platelet Volume 11.5 fL (7.4-10.4); Platelet Count 198 10x3/uL (130-400); RBC Distribution Width 12.6 % (11.5-14.5); Red Blood Cell (RBC) Count 4.68 mill/uL (4.70-6.10); White Blood Cell (WBC) Count 5.9 10x3/uL (4.8-10.8)
[2023-05-29 12:35] LABS: ALT (SGPT) 10 U/L (8-55); AST (SGOT) 17 U/L (5-34); Albumin 4.1 g/dL (3.4-4.8); Alkaline Phosphatase 69 U/L (40-110); Anion Gap 17 mmol/L (10-20); BUN (Urea Nitrogen) 24 mg/dL (8.4-25.7); Bilirubin, Total 0.8 mg/dL (0.2-1.2); Calc. Creatinine Clearance 0 mL/min (70-130); Calcium 10.7 mg/dL (7.8-10.44); Carbon Dioxide 26 mmol/L (23-31); Chloride 99 mmol/L (98-107); Estimated GFR 46; Globulin 4.6 g/dL (2.4-3.5); Glucose 98 mg/dL (83-110); Magnesium 1.6 mg/dL (1.6-2.6); Potassium 3.9 mmol/L (3.5-5.1); Protein, Total 8.7 g/dL (5.8-8.1); Sodium 138 mmol/L (136-145); Troponin I 0.016 ng/mL (< 0.028)
[2023-05-29] MEDS ORDERED: Nitroglycerin 2% Ointment 1 INCH/1 GM Packet ONE (13:26)
[2023-05-29 15:37] LABS: Troponin I Less than 0.010 ng/mL (< 0.028)
== END 2023-05-29 20:52 | disposition short-term general hospital (02) ==
LOC: MADERS 11:48
DX: R07.9 Chest pain, unspecified (principal); E78.5 Hyperlipidemia, unspecified; I11.0 Hypertensive heart disease with heart failure; I50.9 Heart failure, unspecified; K21.9 Gastro-esophageal reflux disease without esophagitis; Z79.899 Other long term (current) drug therapy
CPT/HCPCS: 36415; 71045; 80053; 83735; 83880; 84484; 85025; 93005; 94760